=== PATIENT | female | born 1950 | race Caucasian/White ===

== ENCOUNTER 2023-02-19 06:36 | Inpatient (IN) ==
[2023-02-19] MEDS ORDERED: IOPAMIDOL 100 ML BOTTLE IV ONE (06:37)
[2023-02-19] MEDS ORDERED: ROCURONIUM 10 MG/ML ML IV ONE (06:56)
[2023-02-19] MEDS ORDERED: ETOMIDATE 20 MG/10 ML VIAL IV ONE (06:56)
[2023-02-19] MEDS ORDERED: 0.9 % SODIUM CHLORIDE 1,000 ML IV ONE ×2 (06:58→07:25)
[2023-02-19] MEDS ORDERED: PROPOFOL 1,000 MG in PREMIX 1 BAG IV SCH (07:00)
[2023-02-19] MEDS ORDERED: PIPERACILLIN SODIUM/TAZOBACTAM 3.375 GM in DEXTROSE 5% IN WATER 50 ML IV ONE (07:06)
[2023-02-19 07:15] LABS: POC Calcium, Ionized 1.18 (1.16-1.32); POC Creatinine 1.5 (0.6-1.2); POC Potassium 4.3 (3.3-5.1)
[2023-02-19] MEDS ORDERED: CEFEPIME 2 GM VIAL IV ONE (07:29)
[2023-02-19] MEDS ORDERED: VANCOMYCIN PER PHARMACY IV ONE (07:31)
[2023-02-19] MEDS ORDERED: VANCOMYCIN 1,250 MG in 0.9 % SODIUM CHLORIDE 500 ML IV SCH (07:45)
[2023-02-19 08:14] LABS: Basophils # (Auto) 0.04 K/mcL (0.00-0.30); Basophils % (Auto) 0.3 % (0.0-2.0); Eosinophils # (Auto) 0.02 K/mcL (0.00-0.70); Eosinophils % (Auto) 0.2 % (0.0-7.0); Hematocrit 38.6 % (34.1-44.9); Hemoglobin 11.6 g/dL (11.2-15.7); Lymphocytes # (Auto) 1.17 K/mcL (1.50-4.80); Lymphocytes % (Auto) 9.8 % (15.5-49.0); Mean Cell Volume 101.8 fL (80.0-100.0); Mean Corpuscular HGB Conc 30.1 g/dL (31.0-36.0); Mean Platelet Volume 12.3 fL (8.8-12.5); Monocytes # (Auto) 1.24 K/mcL (0.10-0.90); Monocytes % (Auto) 10.3 % (1.0-12.0); Neutrophils % (Auto) 78.1 % (38.0-78.0); Platelet Count 105 K/mcL (140-440); RBC 3.79 M/mcL (3.59-5.38); Red Cell Distribution Width 14.2 % (11.5-14.5)
[2023-02-19 08:21] LABS: Appearance,Urine CLOUDY (Clear); Bacteria,Urine FEW /hpf (0); Bilirubin,Urine Negative (Negative); Color,Urine YELLOW; Culture Indicated,Urine No; Glucose,Urine (UA) Negative (Negative); Ketones,Urine Negative (Negative); Leukocyte Esterase,Urine Negative /uL (Negative); Mucus,Urine FEW /hpf; Nitrate,Urine Negative (Negative); Protein,Urine 30 mg/dL (Negative); Specific Gravity,Urine 1.016 (1.000-1.035); Urine Amorphous Crystals FEW /hpf; Urine Blood Negative (Negative); Urine Hyaline Cast 1 /lph (0-2); Urine RBC 1 /hpf (0-3); Urine Squamous Epithelial Cell 14 /hpf (0-4); Urine WBC 4 /hpf (0-4); Urobilinogen,Urine Negative
[2023-02-19 08:32] LABS: ALT/SGPT 7 U/L (<40); AST/SGOT 30 U/L (<32); Albumin 2.8 gm/dL (3.2-5.2); Alkaline Phosphatase 36 U/L (39-117); Bilirubin,Direct < 0.2 mg/dL (0-0.3); Bilirubin,Total 0.3 mg/dL (0.1-1.0); Creatine Kinase 468 U/L (24-170); Globulin 2.9 gm/dL (2.2-3.7)
[2023-02-19 08:49] LABS: Free T4 (Free Thyroxine) 1.61 ng/dL (0.93-1.70); Thyroid Stimulating Hormone 0.59 uIU/mL (0.27-5.01)
[2023-02-19] MEDS ORDERED: CEFEPIME 2 GM in DEXTROSE 5% IN WATER 50 ML IV SCH (10:23)
[2023-02-19] MEDS ORDERED: HEPARIN/NS 500 ML IV SCH (10:23)
[2023-02-19] MEDS ORDERED: MAGNESIUM SULFATE 2 GM/50 ML BAG IV PRN (10:23)
[2023-02-19] MEDS ORDERED: ONDANSETRON 4 MG/2 ML VIAL IV PRN (10:23)
[2023-02-19] MEDS ORDERED: 0.9 % SODIUM CHLORIDE 1,000 ML IV SCH (10:23)
[2023-02-19] MEDS ORDERED: BISACODYL 10 MG SUPP.RECT PR PRN (10:23)
[2023-02-19] MEDS ORDERED: ONDANSETRON 4 MG ODT TABLET SL PRN (10:23)
[2023-02-19] MEDS: PROPOFOL 1,000 MG in PREMIX 1 BAG IV SCH ×2 (11:07→16:43)
[2023-02-19] MEDS: fentaNYL 2,500 MCG in 0.9 % SODIUM CHLORIDE 200 ML IV SCH (11:49)
[2023-02-19] MEDS: 0.9 % SODIUM CHLORIDE 10 ML SYRINGE IV SCH ×2 (15:17→20:52)
[2023-02-19] MEDS ORDERED: PROPOFOL 100 ML IV ONE (15:40)
[2023-02-19] MEDS: ACETAMINOPHEN 650 MG/65 ML BAG IV PRN (17:20)
[2023-02-19] MEDS: CEFEPIME 2 GM VIAL IV SCH (20:51)
[2023-02-19] MEDS: FAMOTIDINE/PF 20 MG/2 ML VIAL IV SCH (20:51)
[2023-02-19] MEDS: HEPARIN 5,000 UNIT/ML VIAL SQ SCH (20:51)
[2023-02-19] MEDS: CHLORHEXIDINE GLUCONATE 15 ML UDC SWABMOUTH SCH (20:51)
[2023-02-19] MEDS: DOCUSATE SODIUM 100 MG CAPSULE PO SCH (20:52)
[2023-02-19] MEDS ORDERED: LACTATED RINGERS 1,000 ML IV SCH (21:30)
[2023-02-19] MEDS: LACTATED RINGERS 250 ML IV PRN (21:33)
[2023-02-19] MEDS: 0.9 % SODIUM CHLORIDE 1,000 ML IV SCH (21:46)
[2023-02-19] MEDS ORDERED: NOREPINEPHRINE BITARTRATE 4 MG/4 ML VIAL IV ONE (23:07)
[2023-02-19] MEDS: 0.9 % SODIUM CHLORIDE 250 ML IV SCH (23:10)
[2023-02-19] MEDS: NOREPINEPHRINE BITARTRATE 8 MG in 0.9 % SODIUM CHLORIDE 242 ML IV PRN (23:14)
[2023-02-20] MEDS: ACETAMINOPHEN 650 MG/65 ML BAG IV PRN ×2 (01:32→15:49)
[2023-02-20] MEDS ORDERED: PROPOFOL 100 ML IV ONE ×3 (03:23→21:53)
[2023-02-20] MEDS: PROPOFOL 1,000 MG in PREMIX 1 BAG IV SCH ×4 (03:45→21:57)
[2023-02-20] MEDS: 0.9 % SODIUM CHLORIDE 10 ML SYRINGE IV SCH ×3 (05:06→20:16)
[2023-02-20 06:44] LABS: Basophils # (Auto) 0.05 K/mcL (0.00-0.30); Basophils % (Auto) 0.5 % (0.0-2.0); Eosinophils # (Auto) 0.01 K/mcL (0.00-0.70); Eosinophils % (Auto) 0.1 % (0.0-7.0); Hematocrit 35.2 % (34.1-44.9); Hemoglobin 10.8 g/dL (11.2-15.7); Lymphocytes # (Auto) 0.92 K/mcL (1.50-4.80); Lymphocytes % (Auto) 9.5 % (15.5-49.0); Mean Cell Volume 99.7 fL (80.0-100.0); Mean Corpuscular HGB Conc 30.7 g/dL (31.0-36.0); Mean Platelet Volume 11.9 fL (8.8-12.5); Monocytes % (Auto) 14.4 % (1.0-12.0); Neutrophils % (Auto) 73.9 % (38.0-78.0); Platelet Count 134 K/mcL (140-440); RBC 3.53 M/mcL (3.59-5.38); Red Cell Distribution Width 14.6 % (11.5-14.5); WBC 9.7 K/mcL (4.5-11.0)
[2023-02-20 07:16] LABS: ALT/SGPT 6 U/L (<40); AST/SGOT 25 U/L (<32); Albumin 2.1 gm/dL (3.2-5.2); Albumin/Globulin Ratio 0.7 (1.0-2.3); Alkaline Phosphatase 32 U/L (39-117); Bilirubin,Direct < 0.2 mg/dL (0-0.3); Bilirubin,Total 0.2 mg/dL (0.1-1.0); Blood Urea Nitrogen 30 mg/dL (8-23); Calcium 8.3 mg/dL (8.6-10.4); Carbon Dioxide 22 mmol/L (22-30); Chloride 112 mmol/L (96-108); Globulin 3.2 gm/dL (2.2-3.7); Glomerular Filtration Rate 51; Glucose 90 mg/dL (70-105); Lactate Dehydrogenase 344 U/L (135-225); Phosphorous 4.6 mg/dL (2.5-4.5); Triglycerides 131 mg/dL (<150); Uric Acid 5.8 mg/dL (2.5-8.0)
[2023-02-20] MEDS: BACLOFEN 10 MG TABLET PO SCH ×3 (08:30→20:13)
[2023-02-20] MEDS: LEVOTHYROXINE SODIUM 112 MCG TABLET PO SCH (08:30)
[2023-02-20] MEDS: 0.9 % SODIUM CHLORIDE 1,000 ML IV SCH ×2 (08:55→21:51)
[2023-02-20] MEDS ORDERED: VALPROIC ACIDS 250 MG/5 ML ORAL.SOL PO SCH (09:00)
[2023-02-20] MEDS: CEFEPIME 2 GM VIAL IV SCH ×2 (09:11→20:11)
[2023-02-20] MEDS: HEPARIN 5,000 UNIT/ML VIAL SQ SCH ×2 (09:12→20:11)
[2023-02-20] MEDS: FAMOTIDINE/PF 20 MG/2 ML VIAL IV SCH ×2 (09:12→20:17)
[2023-02-20] MEDS: CHLORHEXIDINE GLUCONATE 15 ML UDC SWABMOUTH SCH ×2 (09:13→20:16)
[2023-02-20] MEDS: 0.9 % SODIUM CHLORIDE 250 ML IV SCH ×2 (11:54→11:58)
[2023-02-20] MEDS: VALPROIC ACIDS 250 MG/5 ML ORAL.SOL PT SCH ×2 (12:53→20:16)
[2023-02-20] MEDS: DOCUSATE SODIUM 100 MG CAPSULE PO SCH ×2 (13:01→20:17)
[2023-02-20] MEDS: fentaNYL 2,500 MCG in 0.9 % SODIUM CHLORIDE 200 ML IV SCH ×2 (14:47→16:04)
[2023-02-20] MEDS ORDERED: fentaNYL 50 ML ONE (16:01)
[2023-02-20] MEDS ORDERED: ALBUMIN HUMAN 12.5 GM/50 ML VIAL IV SCH (16:52)
[2023-02-20] MEDS: SIMVASTATIN 20 MG TABLET PT SCH (20:12)
[2023-02-20] MEDS: VENLAFAXINE 75 MG TABLET PO SCH (20:17)
[2023-02-20] MEDS ORDERED: PREGABALIN 200 MG PO SCH (21:00)
[2023-02-20] MEDS: POLYETHYLENE GLYCOL 3350 17 GM PACKET PO PRN (23:54)
[2023-02-21] MEDS: 0.9 % SODIUM CHLORIDE 250 ML IV SCH ×2 (00:11→01:15)
[2023-02-21] MEDS: 0.9 % SODIUM CHLORIDE 1,000 ML IV SCH (01:15)
[2023-02-21] MEDS: NOREPINEPHRINE BITARTRATE 8 MG in 0.9 % SODIUM CHLORIDE 242 ML IV PRN (03:11)
[2023-02-21] MEDS: 0.9 % SODIUM CHLORIDE 10 ML SYRINGE IV SCH ×5 (05:27→21:46)
[2023-02-21] MEDS ORDERED: PROPOFOL 100 ML IV ONE (06:16)
[2023-02-21] MEDS: PROPOFOL 1,000 MG in PREMIX 1 BAG IV SCH ×2 (06:19→10:24)
[2023-02-21 06:56] LABS: Basophils # (Auto) 0.09 K/mcL (0.00-0.30); Basophils % (Auto) 0.9 % (0.0-2.0); Eosinophils # (Auto) 0.07 K/mcL (0.00-0.70); Eosinophils % (Auto) 0.7 % (0.0-7.0); Hemoglobin 9.7 g/dL (11.2-15.7); Lymphocytes # (Auto) 1.06 K/mcL (1.50-4.80); Mean Cell Volume 97.8 fL (80.0-100.0); Mean Corpuscular HGB Conc 31.3 g/dL (31.0-36.0); Mean Platelet Volume 11.9 fL (8.8-12.5); Monocytes # (Auto) 1.46 K/mcL (0.10-0.90); Monocytes % (Auto) 14.9 % (1.0-12.0); Neutrophils % (Auto) 70.8 % (38.0-78.0); Platelet Count 118 K/mcL (140-440); RBC 3.17 M/mcL (3.59-5.38); Red Cell Distribution Width 14.6 % (11.5-14.5); WBC 9.8 K/mcL (4.5-11.0)
[2023-02-21 07:03] LABS: ALT/SGPT 10 U/L (<40); AST/SGOT 21 U/L (<32); Albumin 2.4 gm/dL (3.2-5.2); Albumin/Globulin Ratio 0.9 (1.0-2.3); Alkaline Phosphatase 36 U/L (39-117); Bilirubin,Direct < 0.2 mg/dL (0-0.3); Bilirubin,Total 0.2 mg/dL (0.1-1.0); Blood Urea Nitrogen 29 mg/dL (8-23); Calcium 8.4 mg/dL (8.6-10.4); Carbon Dioxide 24 mmol/L (22-30); Chloride 117 mmol/L (96-108); Globulin 2.7 gm/dL (2.2-3.7); Glomerular Filtration Rate 51; Glucose 133 mg/dL (70-105); Lactate Dehydrogenase 207 U/L (135-225); Phosphorous 3.3 mg/dL (2.5-4.5); Triglycerides 112 mg/dL (<150); Uric Acid 4.9 mg/dL (2.5-8.0)
[2023-02-21] MEDS ORDERED: 0.9 % SODIUM CHLORIDE 10 ML SYRINGE IV PRN (07:07)
[2023-02-21] MEDS: LEVOTHYROXINE SODIUM 112 MCG TABLET PO SCH (07:56)
[2023-02-21] MEDS: FAMOTIDINE/PF 20 MG/2 ML VIAL IV SCH ×2 (07:56→21:45)
[2023-02-21] MEDS: HEPARIN 5,000 UNIT/ML VIAL SQ SCH ×2 (07:56→21:42)
[2023-02-21] MEDS: VENLAFAXINE 75 MG TABLET PO SCH ×2 (07:56→21:36)
[2023-02-21] MEDS: BACLOFEN 10 MG TABLET PO SCH ×3 (07:56→21:36)
[2023-02-21] MEDS: VALPROIC ACIDS 250 MG/5 ML ORAL.SOL PT SCH ×2 (07:56→21:36)
[2023-02-21] MEDS: CHLORHEXIDINE GLUCONATE 15 ML UDC SWABMOUTH SCH ×3 (07:56→23:36)
[2023-02-21] MEDS: DOCUSATE SODIUM 100 MG CAPSULE PO SCH ×2 (07:57→21:35)
[2023-02-21] MEDS ORDERED: DEXTROSE 5% IN WATER 1,000 ML IV SCH ×2 (08:00→14:41)
[2023-02-21] MEDS: CEFEPIME 1 GM VIAL IV SCH ×2 (08:52→21:40)
[2023-02-21] MEDS ORDERED: LORazepam 2 MG/ML VIAL IV ONE (09:45)
[2023-02-21 10:19] LABS: Lymphocytes % (Auto) 10.8 % (15.5-49.0)
[2023-02-21] MEDS: fentaNYL 2,500 MCG in 0.9 % SODIUM CHLORIDE 200 ML IV SCH (10:24)
[2023-02-21] MEDS: IPRATROPIUM/ALBUTEROL 3 ML AMPUL.NEB NEB PRN ×3 (11:29→20:45)
[2023-02-21] MEDS ORDERED: IPRATROPIUM/ALBUTEROL 3 ML AMPUL.NEB NEB ONE (11:29)
[2023-02-21] MEDS ORDERED: ALBUMIN HUMAN 12.5 GM/50 ML VIAL IV SCH (11:49)
[2023-02-21] MEDS ORDERED: FUROSEMIDE 40 MG/4 ML VIAL IV SCH (11:49)
[2023-02-21] MEDS ORDERED: OLANZapine 5 MG TABLET PO PRN (11:50)
[2023-02-21] MEDS ORDERED: HALOPERIDOL LACTATE 5 MG/ML VIAL IM SCH (12:39)
[2023-02-21] MEDS ORDERED: LORazepam 2 MG/ML VIAL IV PRN (12:40)
[2023-02-21] MEDS ORDERED: HALOPERIDOL LACTATE 5 MG/ML VIAL ONE ×2 (12:40→19:00)
[2023-02-21] MEDS ORDERED: HALOPERIDOL LACTATE 5 MG/ML VIAL IV SCH (12:50)
[2023-02-21] MEDS: BUDESONIDE 0.5 MG/2 ML AMPUL.NEB NEB SCH ×2 (13:29→20:45)
[2023-02-21] MEDS: LACTATED RINGERS 250 ML IV PRN (15:04)
[2023-02-21 18:10] LABS: Blood Urea Nitrogen 27 mg/dL (8-23); Calcium 9.1 mg/dL (8.6-10.4); Carbon Dioxide 26 mmol/L (22-30); Chloride 112 mmol/L (96-108); Glomerular Filtration Rate 57; Glucose 133 mg/dL (70-105)
[2023-02-21] MEDS: HALOPERIDOL LACTATE 5 MG/ML VIAL IV ONE ×2 (19:05→19:36)
[2023-02-21] MEDS ORDERED: DEXMEDETOMIDINE 100 ML IV ONE (19:55)
[2023-02-21] MEDS: DEXMEDETOMIDINE 400 MCG in PREMIX 1 BAG IV SCH (20:15)
[2023-02-21] MEDS ORDERED: 0.9 % SODIUM CHLORIDE 250 ML IV SCH (20:15)
[2023-02-21] MEDS: WATER IV SCH (20:23)
[2023-02-21] MEDS: DEXTROSE 5% IV SCH (20:23)
[2023-02-21] MEDS: SIMVASTATIN 20 MG TABLET PT SCH (21:41)
[2023-02-22] MEDS: ACETAMINOPHEN 650 MG/65 ML BAG IV PRN ×3 (02:34→18:45)
[2023-02-22] MEDS: IPRATROPIUM/ALBUTEROL 3 ML AMPUL.NEB NEB PRN ×5 (03:40→19:05)
[2023-02-22] MEDS ORDERED: DEXMEDETOMIDINE 100 ML IV ONE (04:09)
[2023-02-22] MEDS: DEXMEDETOMIDINE 400 MCG in PREMIX 1 BAG IV SCH ×2 (04:16→19:18)
[2023-02-22] MEDS: 0.9 % SODIUM CHLORIDE 10 ML SYRINGE IV SCH ×5 (05:30→20:16)
[2023-02-22 06:00] LABS: Basophils # (Auto) 0.06 K/mcL (0.00-0.30); Basophils % (Auto) 0.7 % (0.0-2.0); Eosinophils # (Auto) 0.01 K/mcL (0.00-0.70); Eosinophils % (Auto) 0.1 % (0.0-7.0); Hematocrit 27.8 % (34.1-44.9); Hemoglobin 8.7 g/dL (11.2-15.7); Lymphocytes # (Auto) 0.44 K/mcL (1.50-4.80); Mean Cell Volume 97.2 fL (80.0-100.0); Mean Corpuscular HGB Conc 31.3 g/dL (31.0-36.0); Mean Platelet Volume 11.1 fL (8.8-12.5); Monocytes # (Auto) 1.01 K/mcL (0.10-0.90); Monocytes % (Auto) 11.5 % (1.0-12.0); Neutrophils % (Auto) 76.5 % (38.0-78.0); Platelet Count 97 K/mcL (140-440); RBC 2.86 M/mcL (3.59-5.38); Red Cell Distribution Width 14.6 % (11.5-14.5); WBC 8.8 K/mcL (4.5-11.0)
[2023-02-22 06:13] LABS: ALT/SGPT 12 U/L (<40); AST/SGOT 25 U/L (<32); Albumin 2.7 gm/dL (3.2-5.2); Alkaline Phosphatase 39 U/L (39-117); Bilirubin,Direct < 0.2 mg/dL (0-0.3); Bilirubin,Total 0.3 mg/dL (0.1-1.0); Blood Urea Nitrogen 27 mg/dL (8-23); Calcium 8.7 mg/dL (8.6-10.4); Carbon Dioxide 25 mmol/L (22-30); Chloride 112 mmol/L (96-108); Globulin 2.6 gm/dL (2.2-3.7); Glomerular Filtration Rate 57; Glucose 156 mg/dL (70-105); Lactate Dehydrogenase 268 U/L (135-225); Phosphorous 2.9 mg/dL (2.5-4.5); Triglycerides 110 mg/dL (<150); Uric Acid 5.3 mg/dL (2.5-8.0)
[2023-02-22] MEDS: LEVOTHYROXINE SODIUM 112 MCG TABLET PO SCH (07:07)
[2023-02-22] MEDS: BUDESONIDE 0.5 MG/2 ML AMPUL.NEB NEB SCH ×2 (08:30→19:05)
[2023-02-22] MEDS: CHLORHEXIDINE GLUCONATE 15 ML UDC SWABMOUTH SCH ×2 (09:14→20:12)
[2023-02-22] MEDS: FAMOTIDINE/PF 20 MG/2 ML VIAL IV SCH ×2 (09:14→20:12)
[2023-02-22] MEDS: fentaNYL 100 MCG/2 ML VIAL IV PRN ×10 (09:15→22:24)
[2023-02-22] MEDS: HEPARIN 5,000 UNIT/ML VIAL SQ SCH ×2 (09:17→21:17)
[2023-02-22] MEDS: CEFEPIME 1 GM VIAL IV SCH ×2 (09:20→20:12)
[2023-02-22] MEDS: POTASSIUM CHLORIDE 40 MEQ in DEXTROSE 5% IN WATER 500 ML IV PRN (09:36)
[2023-02-22] MEDS: DOCUSATE SODIUM 100 MG CAPSULE PO SCH ×2 (09:55→20:14)
[2023-02-22] MEDS: VALPROIC ACIDS 250 MG/5 ML ORAL.SOL PT SCH ×2 (09:55→20:15)
[2023-02-22] MEDS: BACLOFEN 10 MG TABLET PO SCH ×3 (09:55→20:15)
[2023-02-22] MEDS: VENLAFAXINE 75 MG TABLET PO SCH ×2 (09:55→20:15)
[2023-02-22] MEDS ORDERED: FUROSEMIDE 20 MG/2 ML VIAL IV SCH (10:25)
[2023-02-22] MEDS ORDERED: ALBUMIN HUMAN 12.5 GM/50 ML VIAL IV SCH (10:25)
[2023-02-22] MEDS: ASPIRIN 81 MG TAB.CHEW PO SCH (20:14)
[2023-02-22] MEDS: DEXTROSE 5% IV SCH (20:14)
[2023-02-22] MEDS: WATER IV SCH (20:14)
[2023-02-22] MEDS: SIMVASTATIN 20 MG TABLET PT SCH (20:15)
[2023-02-22] MEDS: PROPRANOLOL 10 MG TABLET PO SCH (20:15)
[2023-02-22] MEDS ORDERED: METHOCARBAMOL 1,000 MG/10 ML VIAL ONE (22:33)
[2023-02-22] MEDS: METHOCARBAMOL 1,000 MG/10 ML VIAL IV PRN (22:37)
[2023-02-23] MEDS: fentaNYL 100 MCG/2 ML VIAL IV PRN ×2 (00:24→02:22)
[2023-02-23] MEDS: ACETAMINOPHEN 650 MG/65 ML BAG IV PRN ×2 (02:26→10:40)
[2023-02-23] MEDS ORDERED: METHOCARBAMOL 1,000 MG/10 ML VIAL ONE (03:55)
[2023-02-23] MEDS: METHOCARBAMOL 1,000 MG/10 ML VIAL IV PRN (03:58)
[2023-02-23] MEDS: 0.9 % SODIUM CHLORIDE 10 ML SYRINGE IV SCH ×5 (05:21→21:08)
[2023-02-23] MEDS ORDERED: LORazepam 2 MG/ML VIAL ONE (06:35)
[2023-02-23 06:37] LABS: ALT/SGPT 16 U/L (<40); AST/SGOT 29 U/L (<32); Albumin 2.8 gm/dL (3.2-5.2); Alkaline Phosphatase 40 U/L (39-117); Bilirubin,Direct < 0.2 mg/dL (0-0.3); Bilirubin,Total 0.3 mg/dL (0.1-1.0); Blood Urea Nitrogen 26 mg/dL (8-23); Calcium 9.2 mg/dL (8.6-10.4); Carbon Dioxide 27 mmol/L (22-30); Chloride 110 mmol/L (96-108); Globulin 2.9 gm/dL (2.2-3.7); Glomerular Filtration Rate 64; Glucose 99 mg/dL (70-105); Lactate Dehydrogenase 319 U/L (135-225); Phosphorous 1.8 mg/dL (2.5-4.5); Triglycerides 105 mg/dL (<150); Uric Acid 5.8 mg/dL (2.5-8.0)
[2023-02-23] MEDS: LEVOTHYROXINE SODIUM 112 MCG TABLET PO SCH (06:39)
[2023-02-23] MEDS: LORazepam 2 MG/ML VIAL IV ONE ×2 (06:39→07:36)
[2023-02-23] MEDS: LIDOCAINE PATCH TOPICAL SCH ×2 (06:53→08:07)
[2023-02-23] MEDS: BACLOFEN 10 MG TABLET PO SCH (07:00)
[2023-02-23] MEDS: VENLAFAXINE 75 MG TABLET PO SCH ×3 (07:00→22:09)
[2023-02-23 07:32] LABS: Basophils # (Auto) 0.02 K/mcL (0.00-0.30); Basophils % (Auto) 0.2 % (0.0-2.0); Eosinophils # (Auto) 0.02 K/mcL (0.00-0.70); Eosinophils % (Auto) 0.2 % (0.0-7.0); Hematocrit 29.6 % (34.1-44.9); Hemoglobin 9.2 g/dL (11.2-15.7); Lymphocytes # (Auto) 0.81 K/mcL (1.50-4.80); Lymphocytes % (Auto) 7.4 % (15.5-49.0); Mean Cell Volume 96.7 fL (80.0-100.0); Mean Corpuscular HGB Conc 31.1 g/dL (31.0-36.0); Mean Platelet Volume 11.2 fL (8.8-12.5); Monocytes # (Auto) 1.53 K/mcL (0.10-0.90); Monocytes % (Auto) 14.1 % (1.0-12.0); Neutrophils % (Auto) 71.9 % (38.0-78.0); Platelet Count 110 K/mcL (140-440); RBC 3.06 M/mcL (3.59-5.38); Red Cell Distribution Width 14.6 % (11.5-14.5); WBC 10.9 K/mcL (4.5-11.0)
[2023-02-23] MEDS: BUDESONIDE 0.5 MG/2 ML AMPUL.NEB NEB SCH ×2 (07:41→20:34)
[2023-02-23] MEDS: IPRATROPIUM/ALBUTEROL 3 ML AMPUL.NEB NEB PRN ×3 (07:41→20:35)
[2023-02-23] MEDS: traMADol 50 MG TABLET PO PRN (08:05)
[2023-02-23] MEDS: PROPRANOLOL 10 MG TABLET PO SCH ×3 (08:07→22:10)
[2023-02-23] MEDS: ASPIRIN 81 MG TAB.CHEW PO SCH ×2 (08:07→21:06)
[2023-02-23] MEDS: VALPROIC ACIDS 250 MG/5 ML ORAL.SOL PT SCH ×2 (08:07→20:56)
[2023-02-23] MEDS: CEFEPIME 1 GM VIAL IV SCH ×2 (08:07→20:58)
[2023-02-23] MEDS: DOCUSATE SODIUM 100 MG CAPSULE PO SCH ×2 (08:07→21:06)
[2023-02-23] MEDS: FAMOTIDINE/PF 20 MG/2 ML VIAL IV SCH ×2 (08:08→20:57)
[2023-02-23] MEDS: HEPARIN 5,000 UNIT/ML VIAL SQ SCH ×2 (08:08→20:57)
[2023-02-23] MEDS: POTASSIUM CHLORIDE 40 MEQ in DEXTROSE 5% IN WATER 500 ML IV PRN (08:09)
[2023-02-23] MEDS: CHLORHEXIDINE GLUCONATE 15 ML UDC SWABMOUTH SCH ×2 (08:09→20:57)
[2023-02-23] MEDS: DONEPEZIL 10 MG TABLET PO SCH (08:27)
[2023-02-23] MEDS ORDERED: NEUTRA PHOS 1 PACKET PO ONE (09:52)
[2023-02-23] MEDS ORDERED: BACLOFEN 10 MG TABLET PO PRN (09:52)
[2023-02-23] MEDS ORDERED: guaiFENesin 600 MG TAB.SR.12H PO SCH (10:00)
[2023-02-23] MEDS ORDERED: guaiFENesin 600 MG TAB.SR.12H PO PRN (10:30)
[2023-02-23 14:18] LABS: ALT/SGPT 24 U/L (<40); AST/SGOT 46 U/L (<32); Albumin 3.2 gm/dL (3.2-5.2); Albumin/Globulin Ratio 1.1 (1.0-2.3); Alkaline Phosphatase 64 U/L (39-117); Bilirubin,Direct < 0.2 mg/dL (0-0.3); Bilirubin,Total 0.3 mg/dL (0.1-1.0); Blood Urea Nitrogen 31 mg/dL (8-23); Calcium 9.5 mg/dL (8.6-10.4); Carbon Dioxide 26 mmol/L (22-30); Chloride 110 mmol/L (96-108); Globulin 2.8 gm/dL (2.2-3.7); Glomerular Filtration Rate 64; Glucose 147 mg/dL (70-105); Lactate Dehydrogenase 363 U/L (135-225); Triglycerides 80 mg/dL (<150)
[2023-02-23] MEDS ORDERED: LABETALOL 5 MG/ML ML IV PRN (15:23)
[2023-02-23] MEDS: hydrALAZINE 20 MG/ML VIAL IV PRN (15:36)
[2023-02-23] MEDS: BACLOFEN 10 MG TABLET PO PRN (16:02)
[2023-02-23] MEDS: oxyCODONE IR 5 MG TABLET PO PRN (16:02)
[2023-02-23] MEDS: ACETAMINOPHEN 325 MG TABLET PO PRN (16:03)
[2023-02-23] MEDS: DEXMEDETOMIDINE 400 MCG in PREMIX 1 BAG IV SCH (20:29)
[2023-02-23] MEDS: guaiFENesin 600 MG TAB.SR.12H PO SCH (21:07)
[2023-02-23] MEDS: SIMVASTATIN 20 MG TABLET PT SCH ×2 (21:09→22:10)
[2023-02-24] MEDS: 0.9 % SODIUM CHLORIDE 10 ML SYRINGE IV SCH ×5 (05:18→21:05)
[2023-02-24] MEDS: IPRATROPIUM/ALBUTEROL 3 ML AMPUL.NEB NEB PRN ×3 (07:28→20:42)
[2023-02-24] MEDS: BUDESONIDE 0.5 MG/2 ML AMPUL.NEB NEB SCH ×2 (07:28→20:42)
[2023-02-24] MEDS: LEVOTHYROXINE SODIUM 112 MCG TABLET PO SCH (07:48)
[2023-02-24 07:53] LABS: Basophils # (Auto) 0.02 K/mcL (0.00-0.30); Basophils % (Auto) 0.2 % (0.0-2.0); Eosinophils # (Auto) 0.03 K/mcL (0.00-0.70); Eosinophils % (Auto) 0.3 % (0.0-7.0); Hematocrit 31.4 % (34.1-44.9); Hemoglobin 9.7 g/dL (11.2-15.7); Lymphocytes # (Auto) 1.48 K/mcL (1.50-4.80); Lymphocytes % (Auto) 12.5 % (15.5-49.0); Mean Cell Volume 97.8 fL (80.0-100.0); Mean Corpuscular HGB Conc 30.9 g/dL (31.0-36.0); Monocytes # (Auto) 1.68 K/mcL (0.10-0.90); Monocytes % (Auto) 14.2 % (1.0-12.0); Neutrophils % (Auto) 62.7 % (38.0-78.0); Platelet Count 156 K/mcL (140-440); RBC 3.21 M/mcL (3.59-5.38); WBC 11.8 K/mcL (4.5-11.0)
[2023-02-24 07:55] LABS: ALT/SGPT 23 U/L (<40); AST/SGOT 29 U/L (<32); Albumin 2.9 gm/dL (3.2-5.2); Alkaline Phosphatase 57 U/L (39-117); Bilirubin,Direct < 0.2 mg/dL (0-0.3); Bilirubin,Total 0.4 mg/dL (0.1-1.0); Blood Urea Nitrogen 36 mg/dL (8-23); Carbon Dioxide 27 mmol/L (22-30); Chloride 113 mmol/L (96-108); Globulin 2.8 gm/dL (2.2-3.7); Glomerular Filtration Rate 64; Glucose 105 mg/dL (70-105); Lactate Dehydrogenase 346 U/L (135-225); Phosphorous 2.2 mg/dL (2.5-4.5); Triglycerides 86 mg/dL (<150); Uric Acid 5.8 mg/dL (2.5-8.0)
[2023-02-24] MEDS: PROPRANOLOL 10 MG TABLET PO SCH ×2 (08:29→20:44)
[2023-02-24] MEDS: VENLAFAXINE 75 MG TABLET PO SCH ×2 (08:29→20:44)
[2023-02-24] MEDS: ASPIRIN 81 MG TAB.CHEW PO SCH ×2 (08:29→20:44)
[2023-02-24] MEDS: guaiFENesin 600 MG TAB.SR.12H PO SCH ×2 (08:30→20:44)
[2023-02-24] MEDS: VALPROIC ACIDS 250 MG/5 ML ORAL.SOL PT SCH ×2 (08:30→20:41)
[2023-02-24] MEDS: CHLORHEXIDINE GLUCONATE 15 ML UDC SWABMOUTH SCH ×3 (08:30→21:05)
[2023-02-24] MEDS ORDERED: DEXTROSE 5%-LR 1,000 ML IV SCH (08:30)
[2023-02-24] MEDS: DOCUSATE SODIUM 100 MG CAPSULE PO SCH ×2 (08:31→20:47)
[2023-02-24] MEDS: DONEPEZIL 10 MG TABLET PO SCH (08:43)
[2023-02-24] MEDS: HEPARIN 5,000 UNIT/ML VIAL SQ SCH ×2 (08:48→20:42)
[2023-02-24] MEDS: CEFEPIME 1 GM VIAL IV SCH ×2 (08:48→20:42)
[2023-02-24] MEDS: FAMOTIDINE/PF 20 MG/2 ML VIAL IV SCH ×2 (08:48→20:43)
[2023-02-24] MEDS: hydrALAZINE 20 MG/ML VIAL IV PRN (10:11)
[2023-02-24] MEDS: SODIUM CHLORIDE FOR INHALATION INH SCH ×2 (11:48→20:43)
[2023-02-24] MEDS: ACETYLCYSTEINE 800 MG/4 ML VIAL NEB SCH ×2 (11:49→20:42)
[2023-02-24] MEDS: LIDOCAINE PATCH TOPICAL SCH (13:23)
[2023-02-24] MEDS: DEXTROSE 5% IN WATER 1,000 ML IV SCH (17:07)
[2023-02-24] MEDS: SIMVASTATIN 20 MG TABLET PT SCH (20:44)
[2023-02-24] MEDS: DEXMEDETOMIDINE 400 MCG in PREMIX 1 BAG IV SCH (20:47)
[2023-02-25] MEDS: 0.9 % SODIUM CHLORIDE 10 ML SYRINGE IV SCH ×4 (05:49→21:27)
[2023-02-25] MEDS: DEXTROSE 5% IN WATER 1,000 ML IV SCH ×2 (05:50→18:49)
[2023-02-25 07:17] LABS: ALT/SGPT 20 U/L (<40); AST/SGOT 18 U/L (<32); Albumin 2.5 gm/dL (3.2-5.2); Albumin/Globulin Ratio 0.8 (1.0-2.3); Alkaline Phosphatase 55 U/L (39-117); Bilirubin,Direct < 0.2 mg/dL (0-0.3); Bilirubin,Total 0.3 mg/dL (0.1-1.0); Blood Urea Nitrogen 38 mg/dL (8-23); Calcium 9.8 mg/dL (8.6-10.4); Carbon Dioxide 28 mmol/L (22-30); Chloride 113 mmol/L (96-108); Glomerular Filtration Rate 74; Glucose 129 mg/dL (70-105); Lactate Dehydrogenase 340 U/L (135-225); Phosphorous 1.7 mg/dL (2.5-4.5); Triglycerides 114 mg/dL (<150); Uric Acid 5.6 mg/dL (2.5-8.0)
[2023-02-25] MEDS ORDERED: POTASSIUM PHOSPHATE 40 MEQ in DEXTROSE 5% IN WATER 500 ML IV ONE (07:56)
[2023-02-25] MEDS: POLYETHYLENE GLYCOL 3350 17 GM PACKET PO PRN (08:14)
[2023-02-25] MEDS: DOCUSATE SODIUM 100 MG CAPSULE PO SCH ×2 (08:14→21:26)
[2023-02-25] MEDS: guaiFENesin 600 MG TAB.SR.12H PO SCH ×2 (08:15→21:26)
[2023-02-25] MEDS: VENLAFAXINE 75 MG TABLET PO SCH ×2 (08:15→21:26)
[2023-02-25] MEDS: PROPRANOLOL 10 MG TABLET PO SCH ×2 (08:15→21:26)
[2023-02-25] MEDS: CEFEPIME 1 GM VIAL IV SCH ×2 (08:16→21:25)
[2023-02-25] MEDS: LEVOTHYROXINE SODIUM 112 MCG TABLET PO SCH (08:16)
[2023-02-25] MEDS: ASPIRIN 81 MG TAB.CHEW PO SCH ×2 (08:16→21:26)
[2023-02-25] MEDS: traMADol 50 MG TABLET PO PRN (08:16)
[2023-02-25] MEDS: CHLORHEXIDINE GLUCONATE 15 ML UDC SWABMOUTH SCH ×3 (08:16→21:25)
[2023-02-25] MEDS: DONEPEZIL 10 MG TABLET PO SCH (08:16)
[2023-02-25] MEDS: HEPARIN 5,000 UNIT/ML VIAL SQ SCH (08:17)
[2023-02-25] MEDS: FAMOTIDINE/PF 20 MG/2 ML VIAL IV SCH ×2 (08:21→21:25)
[2023-02-25] MEDS: VALPROIC ACIDS 250 MG/5 ML ORAL.SOL PT SCH ×2 (08:21→21:24)
[2023-02-25 08:48] LABS: Basophils # (Auto) 0.02 K/mcL (0.00-0.30); Basophils % (Auto) 0.1 % (0.0-2.0); Eosinophils # (Auto) 0.12 K/mcL (0.00-0.70); Eosinophils % (Auto) 0.9 % (0.0-7.0); Hematocrit 30.7 % (34.1-44.9); Hemoglobin 9.6 g/dL (11.2-15.7); Mean Cell Volume 96.8 fL (80.0-100.0); Mean Corpuscular HGB Conc 31.3 g/dL (31.0-36.0); Monocytes # (Auto) 2.01 K/mcL (0.10-0.90); Monocytes % (Auto) 14.6 % (1.0-12.0); Platelet Count 172 K/mcL (140-440); Red Cell Distribution Width 14.9 % (11.5-14.5)
[2023-02-25 09:03] LABS: RBC 3.17 M/mcL (3.59-5.38); WBC 13.8 K/mcL (4.5-11.0)
[2023-02-25] MEDS: BUDESONIDE 0.5 MG/2 ML AMPUL.NEB NEB SCH ×2 (09:25→19:11)
[2023-02-25] MEDS: ACETYLCYSTEINE 800 MG/4 ML VIAL NEB SCH ×2 (09:25→19:11)
[2023-02-25] MEDS: IPRATROPIUM/ALBUTEROL 3 ML AMPUL.NEB NEB PRN ×3 (09:25→19:11)
[2023-02-25] MEDS: SODIUM CHLORIDE FOR INHALATION INH SCH ×3 (09:26→19:11)
[2023-02-25] MEDS: LIDOCAINE PATCH TOPICAL SCH (12:46)
[2023-02-25] MEDS: POTASSIUM CHLORIDE 20 MEQ/15 ML ML PT SCH (16:53)
[2023-02-25] MEDS: SIMVASTATIN 20 MG TABLET PT SCH (21:26)
[2023-02-26] MEDS: hydrALAZINE 20 MG/ML VIAL IV PRN (04:25)
[2023-02-26] MEDS: 0.9 % SODIUM CHLORIDE 10 ML SYRINGE IV SCH ×3 (04:26→21:32)
[2023-02-26 07:13] LABS: Phosphorous 2.4 mg/dL (2.5-4.5)
[2023-02-26 07:35] LABS: Basophils # (Auto) 0.04 K/mcL (0.00-0.30); Basophils % (Auto) 0.2 % (0.0-2.0); Eosinophils # (Auto) 0.51 K/mcL (0.00-0.70); Eosinophils % (Auto) 2.2 % (0.0-7.0); Hematocrit 38.6 % (34.1-44.9); Hemoglobin 12.1 g/dL (11.2-15.7); Lymphocytes # (Auto) 2.79 K/mcL (1.50-4.80); Lymphocytes % (Auto) 12.1 % (15.5-49.0); Mean Corpuscular HGB Conc 31.3 g/dL (31.0-36.0); Mean Platelet Volume 10.8 fL (8.8-12.5); Monocytes # (Auto) 2.96 K/mcL (0.10-0.90); Monocytes % (Auto) 12.9 % (1.0-12.0); Neutrophils % (Auto) 61.7 % (38.0-78.0); Platelet Count 237 K/mcL (140-440); Red Cell Distribution Width 14.6 % (11.5-14.5)
[2023-02-26 07:43] LABS: ALT/SGPT 28 U/L (<40); AST/SGOT 37 U/L (<32); Albumin/Globulin Ratio 0.9 (1.0-2.3); Alkaline Phosphatase 71 U/L (39-117); Bilirubin,Total 0.4 mg/dL (0.1-1.0); Blood Urea Nitrogen 28 mg/dL (8-23); Calcium 9.9 mg/dL (8.6-10.4); Carbon Dioxide 27 mmol/L (22-30); Chloride 105 mmol/L (96-108); Globulin 3.2 gm/dL (2.2-3.7); Glomerular Filtration Rate 87; Glucose 114 mg/dL (70-105)
[2023-02-26 08:18] LABS: RBC 4.02 M/mcL (3.59-5.38)
[2023-02-26] MEDS: IPRATROPIUM/ALBUTEROL 3 ML AMPUL.NEB NEB PRN ×3 (08:53→20:16)
[2023-02-26] MEDS: BUDESONIDE 0.5 MG/2 ML AMPUL.NEB NEB SCH ×2 (08:53→20:16)
[2023-02-26] MEDS: SODIUM CHLORIDE FOR INHALATION INH SCH ×3 (08:53→20:17)
[2023-02-26] MEDS: ACETYLCYSTEINE 800 MG/4 ML VIAL NEB SCH ×2 (08:53→20:17)
[2023-02-26] MEDS: VENLAFAXINE 75 MG TABLET PO SCH ×2 (09:17→21:32)
[2023-02-26] MEDS: guaiFENesin 600 MG TAB.SR.12H PO SCH ×2 (09:17→21:32)
[2023-02-26] MEDS: DONEPEZIL 10 MG TABLET PO SCH (09:17)
[2023-02-26] MEDS: ASPIRIN 81 MG TAB.CHEW PO SCH ×2 (09:17→21:33)
[2023-02-26] MEDS: LEVOTHYROXINE SODIUM 112 MCG TABLET PO SCH (09:17)
[2023-02-26] MEDS: PROPRANOLOL 10 MG TABLET PO SCH ×2 (09:17→21:32)
[2023-02-26] MEDS: CHLORHEXIDINE GLUCONATE 15 ML UDC SWABMOUTH SCH ×2 (09:18→21:31)
[2023-02-26] MEDS: POTASSIUM CHLORIDE 20 MEQ/15 ML ML PT SCH ×2 (09:18→16:49)
[2023-02-26] MEDS: FAMOTIDINE/PF 20 MG/2 ML VIAL IV SCH ×2 (09:18→21:31)
[2023-02-26] MEDS: VALPROIC ACIDS 250 MG/5 ML ORAL.SOL PT SCH ×2 (09:18→21:30)
[2023-02-26] MEDS: ENOXAPARIN 40 MG/0.4 ML SYRINGE SQ SCH (09:18)
[2023-02-26] MEDS: traMADol 50 MG TABLET PO PRN (09:18)
[2023-02-26] MEDS: CEFEPIME 1 GM VIAL IV SCH ×2 (09:19→21:31)
[2023-02-26] MEDS: DOCUSATE SODIUM 100 MG CAPSULE PO SCH ×2 (09:34→21:12)
[2023-02-26] MEDS: DEXTROSE 5% IN WATER 1,000 ML IV SCH (09:34)
[2023-02-26] MEDS: LIDOCAINE PATCH TOPICAL SCH (12:52)
[2023-02-26] MEDS: SIMVASTATIN 20 MG TABLET PT SCH (21:33)
[2023-02-27] MEDS: hydrALAZINE 20 MG/ML VIAL IV PRN ×2 (04:05→14:31)
[2023-02-27] MEDS: 0.9 % SODIUM CHLORIDE 10 ML SYRINGE IV SCH ×3 (04:06→22:36)
[2023-02-27] MEDS: IPRATROPIUM/ALBUTEROL 3 ML AMPUL.NEB NEB PRN ×2 (04:42→21:25)
[2023-02-27 07:11] LABS: Basophils # (Auto) 0.03 K/mcL (0.00-0.30); Basophils % (Auto) 0.1 % (0.0-2.0); Eosinophils # (Auto) 0.43 K/mcL (0.00-0.70); Eosinophils % (Auto) 1.8 % (0.0-7.0); Hematocrit 40.7 % (34.1-44.9); Hemoglobin 13.2 g/dL (11.2-15.7); Lymphocytes # (Auto) 2.45 K/mcL (1.50-4.80); Lymphocytes % (Auto) 10.2 % (15.5-49.0); Mean Cell Volume 93.8 fL (80.0-100.0); Mean Corpuscular HGB Conc 32.4 g/dL (31.0-36.0); Monocytes # (Auto) 2.52 K/mcL (0.10-0.90); Monocytes % (Auto) 10.5 % (1.0-12.0); Neutrophils % (Auto) 68.2 % (38.0-78.0); Platelet Count 249 K/mcL (140-440); RBC 4.34 M/mcL (3.59-5.38); WBC 23.9 K/mcL (4.5-11.0)
[2023-02-27] MEDS: ACETYLCYSTEINE 800 MG/4 ML VIAL NEB SCH ×2 (07:15→21:25)
[2023-02-27] MEDS: BUDESONIDE 0.5 MG/2 ML AMPUL.NEB NEB SCH ×2 (07:15→21:25)
[2023-02-27] MEDS: SODIUM CHLORIDE FOR INHALATION INH SCH ×3 (07:15→21:26)
[2023-02-27 07:22] LABS: ALT/SGPT 22 U/L (<40); AST/SGOT 25 U/L (<32); Albumin 3.2 gm/dL (3.2-5.2); Albumin/Globulin Ratio 1.1 (1.0-2.3); Alkaline Phosphatase 71 U/L (39-117); Bilirubin,Total 0.4 mg/dL (0.1-1.0); Blood Urea Nitrogen 26 mg/dL (8-23); Calcium 10.2 mg/dL (8.6-10.4); Carbon Dioxide 29 mmol/L (22-30); Chloride 103 mmol/L (96-108); Glomerular Filtration Rate 87; Glucose 122 mg/dL (70-105)
[2023-02-27] MEDS: LEVOTHYROXINE SODIUM 112 MCG TABLET PO SCH (07:34)
[2023-02-27] MEDS: ENOXAPARIN 40 MG/0.4 ML SYRINGE SQ SCH (08:42)
[2023-02-27] MEDS: CHLORHEXIDINE GLUCONATE 15 ML UDC SWABMOUTH SCH ×2 (08:42→21:42)
[2023-02-27] MEDS: POTASSIUM CHLORIDE 20 MEQ/15 ML ML PT SCH ×2 (08:43→17:34)
[2023-02-27] MEDS: ASPIRIN 81 MG TAB.CHEW PO SCH ×2 (08:44→21:39)
[2023-02-27] MEDS: VENLAFAXINE 75 MG TABLET PO SCH ×2 (08:45→21:41)
[2023-02-27] MEDS: guaiFENesin 600 MG TAB.SR.12H PO SCH ×2 (08:45→21:41)
[2023-02-27] MEDS: PROPRANOLOL 10 MG TABLET PO SCH ×2 (08:45→21:41)
[2023-02-27] MEDS: FAMOTIDINE/PF 20 MG/2 ML VIAL IV SCH ×2 (08:52→21:41)
[2023-02-27] MEDS: DOCUSATE SODIUM 100 MG CAPSULE PO SCH ×2 (09:41→21:39)
[2023-02-27] MEDS: LIDOCAINE PATCH TOPICAL SCH (10:13)
[2023-02-27] MEDS: VALPROIC ACIDS 250 MG/5 ML ORAL.SOL PT SCH ×2 (10:14→21:39)
[2023-02-27] MEDS: CEFEPIME 1 GM VIAL IV SCH ×2 (10:14→21:41)
[2023-02-27] MEDS: DONEPEZIL 10 MG TABLET PO SCH (11:02)
[2023-02-27] MEDS: LOPERAMIDE 2 MG CAPSULE PO PRN ×3 (14:25→17:34)
[2023-02-27] MEDS ORDERED: METOPROLOL TARTRATE 5 MG/5 ML VIAL IV PRN ×2 (14:29→14:31)
[2023-02-27] MEDS: metroNIDAZOLE 500 MG/100 ML BAG IV SCH ×2 (14:30→21:42)
[2023-02-27] MEDS: fentaNYL 100 MCG/2 ML VIAL IV PRN (21:41)
[2023-02-27] MEDS: SIMVASTATIN 20 MG TABLET PT SCH (21:42)
[2023-02-28] MEDS: traMADol 50 MG TABLET PO PRN (03:28)
[2023-02-28] MEDS: 0.9 % SODIUM CHLORIDE 10 ML SYRINGE IV SCH ×3 (06:01→21:21)
[2023-02-28] MEDS: metroNIDAZOLE 500 MG/100 ML BAG IV SCH ×4 (06:01→21:20)
[2023-02-28 06:19] LABS: Basophils # (Auto) 0.17 K/mcL (0.00-0.30); Basophils % (Auto) 0.7 % (0.0-2.0); Eosinophils # (Auto) 0.17 K/mcL (0.00-0.70); Eosinophils % (Auto) 0.7 % (0.0-7.0); Hematocrit 37.8 % (34.1-44.9); Hemoglobin 12.4 g/dL (11.2-15.7); Lymphocytes # (Auto) 2.16 K/mcL (1.50-4.80); Lymphocytes % (Auto) 8.7 % (15.5-49.0); Mean Cell Volume 93.6 fL (80.0-100.0); Mean Corpuscular HGB Conc 32.8 g/dL (31.0-36.0); Mean Platelet Volume 10.9 fL (8.8-12.5); Monocytes # (Auto) 2.49 K/mcL (0.10-0.90); Neutrophils % (Auto) 73.8 % (38.0-78.0); Platelet Count 220 K/mcL (140-440); RBC 4.04 M/mcL (3.59-5.38); Red Cell Distribution Width 15.8 % (11.5-14.5)
[2023-02-28 06:41] LABS: ALT/SGPT 18 U/L (<40); AST/SGOT 25 U/L (<32); Albumin 2.9 gm/dL (3.2-5.2); Alkaline Phosphatase 61 U/L (39-117); Bilirubin,Total 0.3 mg/dL (0.1-1.0); Blood Urea Nitrogen 34 mg/dL (8-23); Calcium 9.9 mg/dL (8.6-10.4); Carbon Dioxide 33 mmol/L (22-30); Chloride 109 mmol/L (96-108); Globulin 2.8 gm/dL (2.2-3.7); Glomerular Filtration Rate 64; Glucose 114 mg/dL (70-105)
[2023-02-28] MEDS: ACETYLCYSTEINE 800 MG/4 ML VIAL NEB SCH ×2 (07:20→21:26)
[2023-02-28] MEDS: SODIUM CHLORIDE FOR INHALATION INH SCH ×3 (07:20→21:25)
[2023-02-28] MEDS: BUDESONIDE 0.5 MG/2 ML AMPUL.NEB NEB SCH ×2 (07:20→21:26)
[2023-02-28] MEDS: CEFEPIME 1 GM VIAL IV SCH ×2 (08:30→21:19)
[2023-02-28] MEDS: FAMOTIDINE/PF 20 MG/2 ML VIAL IV SCH ×2 (08:30→21:19)
[2023-02-28] MEDS: ASPIRIN 81 MG TAB.CHEW PO SCH ×2 (08:31→21:18)
[2023-02-28] MEDS: PROPRANOLOL 10 MG TABLET PO SCH ×2 (08:31→21:18)
[2023-02-28] MEDS: VENLAFAXINE 75 MG TABLET PO SCH ×2 (08:31→21:18)
[2023-02-28] MEDS: POTASSIUM CHLORIDE 20 MEQ/15 ML ML PT SCH ×2 (08:31→17:30)
[2023-02-28] MEDS: ENOXAPARIN 40 MG/0.4 ML SYRINGE SQ SCH (08:31)
[2023-02-28] MEDS: LOPERAMIDE 2 MG CAPSULE PO PRN (08:31)
[2023-02-28] MEDS: LEVOTHYROXINE SODIUM 112 MCG TABLET PO SCH (08:31)
[2023-02-28] MEDS: CHLORHEXIDINE GLUCONATE 15 ML UDC SWABMOUTH SCH ×2 (08:32→21:20)
[2023-02-28] MEDS: guaiFENesin 600 MG TAB.SR.12H PO SCH (08:32)
[2023-02-28] MEDS: DOCUSATE SODIUM 100 MG CAPSULE PO SCH ×2 (08:33→21:18)
[2023-02-28] MEDS: VALPROIC ACIDS 250 MG/5 ML ORAL.SOL PT SCH ×2 (08:57→21:18)
[2023-02-28] MEDS: LIDOCAINE PATCH TOPICAL SCH (11:56)
[2023-02-28] MEDS: amLODIPine 5 MG TABLET PO SCH (11:56)
[2023-02-28] MEDS: DONEPEZIL 10 MG TABLET PO SCH (11:57)
[2023-02-28] MEDS: hydrALAZINE 20 MG/ML VIAL IV PRN (14:05)
[2023-02-28] MEDS: SIMVASTATIN 20 MG TABLET PT SCH (21:19)
[2023-02-28] MEDS: IPRATROPIUM/ALBUTEROL 3 ML AMPUL.NEB NEB PRN (21:26)
[2023-03-01] MEDS: metroNIDAZOLE 500 MG/100 ML BAG IV SCH ×3 (05:24→20:37)
[2023-03-01] MEDS: 0.9 % SODIUM CHLORIDE 10 ML SYRINGE IV SCH ×3 (05:25→20:38)
[2023-03-01 07:28] LABS: ALT/SGPT 23 U/L (<40); AST/SGOT 36 U/L (<32); Albumin/Globulin Ratio 0.9 (1.0-2.3); Alkaline Phosphatase 61 U/L (39-117); Bilirubin,Total 0.2 mg/dL (0.1-1.0); Blood Urea Nitrogen 38 mg/dL (8-23); Carbon Dioxide 31 mmol/L (22-30); Chloride 109 mmol/L (96-108); Globulin 3.2 gm/dL (2.2-3.7); Glomerular Filtration Rate 64; Glucose 88 mg/dL (70-105)
[2023-03-01 07:56] LABS: Basophils # (Auto) 0.03 K/mcL (0.00-0.30); Basophils % (Auto) 0.1 % (0.0-2.0); Eosinophils # (Auto) 0.31 K/mcL (0.00-0.70); Hematocrit 40.1 % (34.1-44.9); Hemoglobin 12.2 g/dL (11.2-15.7); Lymphocytes # (Auto) 2.49 K/mcL (1.50-4.80); Lymphocytes % (Auto) 8.3 % (15.5-49.0); Mean Corpuscular HGB Conc 30.4 g/dL (31.0-36.0); Mean Platelet Volume 11.1 fL (8.8-12.5); Monocytes # (Auto) 2.92 K/mcL (0.10-0.90); Monocytes % (Auto) 9.7 % (1.0-12.0); Neutrophils % (Auto) 76.4 % (38.0-78.0); Platelet Count 211 K/mcL (140-440); RBC 4.01 M/mcL (3.59-5.38); Red Cell Distribution Width 16.4 % (11.5-14.5); WBC 30.2 K/mcL (4.5-11.0)
[2023-03-01] MEDS: BUDESONIDE 0.5 MG/2 ML AMPUL.NEB NEB SCH ×2 (08:09→19:00)
[2023-03-01] MEDS: ACETYLCYSTEINE 800 MG/4 ML VIAL NEB SCH ×2 (08:09→19:00)
[2023-03-01] MEDS: IPRATROPIUM/ALBUTEROL 3 ML AMPUL.NEB NEB PRN ×2 (08:09→14:56)
[2023-03-01] MEDS: SODIUM CHLORIDE FOR INHALATION INH SCH ×3 (08:10→19:00)
[2023-03-01] MEDS: LEVOTHYROXINE SODIUM 112 MCG TABLET PO SCH (08:25)
[2023-03-01] MEDS: ACETAMINOPHEN 325 MG TABLET PO PRN (08:25)
[2023-03-01] MEDS: POTASSIUM CHLORIDE 20 MEQ/15 ML ML PT SCH ×2 (08:26→17:22)
[2023-03-01] MEDS: ASPIRIN 81 MG TAB.CHEW PO SCH ×2 (08:26→20:36)
[2023-03-01] MEDS: PROPRANOLOL 10 MG TABLET PO SCH ×2 (08:26→20:36)
[2023-03-01] MEDS: amLODIPine 5 MG TABLET PO SCH (08:26)
[2023-03-01] MEDS: DOCUSATE SODIUM 100 MG CAPSULE PO SCH ×2 (08:26→20:38)
[2023-03-01] MEDS: VENLAFAXINE 75 MG TABLET PO SCH ×2 (08:26→20:36)
[2023-03-01] MEDS: CHLORHEXIDINE GLUCONATE 15 ML UDC SWABMOUTH SCH ×2 (08:27→20:37)
[2023-03-01] MEDS: DONEPEZIL 10 MG TABLET PO SCH (08:27)
[2023-03-01] MEDS: FAMOTIDINE/PF 20 MG/2 ML VIAL IV SCH ×2 (08:27→20:36)
[2023-03-01] MEDS: ENOXAPARIN 40 MG/0.4 ML SYRINGE SQ SCH (08:27)
[2023-03-01] MEDS: VALPROIC ACIDS 250 MG/5 ML ORAL.SOL PT SCH ×2 (08:27→20:36)
[2023-03-01] MEDS: CEFEPIME 1 GM VIAL IV SCH ×2 (08:28→20:36)
[2023-03-01] MEDS: LIDOCAINE PATCH TOPICAL SCH (08:28)
[2023-03-01] MEDS: guaiFENesin/DEXTROMETHORPHAN 5ML UD CUP PO PRN (08:28)
[2023-03-01] MEDS ORDERED: FUROSEMIDE 40 MG/4 ML VIAL IV ONE (08:44)
[2023-03-01 19:13] LABS: Appearance,Urine HAZY (Clear); Bacteria,Urine FEW /hpf (0); Bilirubin,Urine Negative (Negative); Color,Urine YELLOW; Culture Indicated,Urine Yes; Glucose,Urine (UA) Negative (Negative); Ketones,Urine Negative (Negative); Leukocyte Esterase,Urine Negative /uL (Negative); Mucus,Urine FEW /hpf; Nitrate,Urine Negative (Negative); Protein,Urine 30 mg/dL (Negative); Specific Gravity,Urine 1.011 (1.000-1.035); Urine Blood Negative (Negative); Urine RBC 2 /hpf (0-3); Urine Squamous Epithelial Cell 6 /hpf (0-4); Urine WBC 2 /hpf (0-4); Urobilinogen,Urine Negative
[2023-03-01] MEDS: SIMVASTATIN 20 MG TABLET PT SCH (20:37)
[2023-03-01] MEDS: NYSTATIN POWDER BOTTLE 15GM TOPICAL SCH (21:09)
[2023-03-02] MEDS: 0.9 % SODIUM CHLORIDE 10 ML SYRINGE IV SCH ×3 (05:27→21:49)
[2023-03-02] MEDS: metroNIDAZOLE 500 MG/100 ML BAG IV SCH (05:28)
[2023-03-02 05:37] LABS: Basophils # (Auto) 0.11 K/mcL (0.00-0.30); Basophils % (Auto) 0.5 % (0.0-2.0); Eosinophils # (Auto) 0.33 K/mcL (0.00-0.70); Eosinophils % (Auto) 1.5 % (0.0-7.0); Hematocrit 33.7 % (34.1-44.9); Hemoglobin 10.5 g/dL (11.2-15.7); Lymphocytes # (Auto) 1.79 K/mcL (1.50-4.80); Lymphocytes % (Auto) 8.1 % (15.5-49.0); Mean Cell Volume 97.7 fL (80.0-100.0); Mean Corpuscular HGB Conc 31.2 g/dL (31.0-36.0); Mean Platelet Volume 11.4 fL (8.8-12.5); Monocytes # (Auto) 1.61 K/mcL (0.10-0.90); Monocytes % (Auto) 7.3 % (1.0-12.0); Neutrophils % (Auto) 80.1 % (38.0-78.0); Platelet Count 219 K/mcL (140-440); RBC 3.45 M/mcL (3.59-5.38); WBC 22.2 K/mcL (4.5-11.0)
[2023-03-02 06:09] LABS: ALT/SGPT 23 U/L (<40); AST/SGOT 30 U/L (<32); Albumin 2.7 gm/dL (3.2-5.2); Albumin/Globulin Ratio 0.9 (1.0-2.3); Alkaline Phosphatase 44 U/L (39-117); Bilirubin,Total 0.3 mg/dL (0.1-1.0); Blood Urea Nitrogen 37 mg/dL (8-23); Calcium 9.4 mg/dL (8.6-10.4); Carbon Dioxide 32 mmol/L (22-30); Chloride 106 mmol/L (96-108); Glomerular Filtration Rate 64; Glucose 75 mg/dL (70-105)
[2023-03-02] MEDS: POTASSIUM CHLORIDE 20 MEQ/15 ML ML PT SCH ×2 (07:49→16:58)
[2023-03-02] MEDS: LEVOTHYROXINE SODIUM 112 MCG TABLET PO SCH (07:49)
[2023-03-02] MEDS: IPRATROPIUM/ALBUTEROL 3 ML AMPUL.NEB NEB PRN ×2 (08:25→18:43)
[2023-03-02] MEDS: ACETYLCYSTEINE 800 MG/4 ML VIAL NEB SCH ×3 (08:25→19:18)
[2023-03-02] MEDS: SODIUM CHLORIDE FOR INHALATION INH SCH (08:25)
[2023-03-02] MEDS: BUDESONIDE 0.5 MG/2 ML AMPUL.NEB NEB SCH ×3 (08:25→19:19)
[2023-03-02] MEDS: VALPROIC ACIDS 250 MG/5 ML ORAL.SOL PT SCH ×2 (09:02→21:48)
[2023-03-02] MEDS: ENOXAPARIN 40 MG/0.4 ML SYRINGE SQ SCH (09:02)
[2023-03-02] MEDS: CHLORHEXIDINE GLUCONATE 15 ML UDC SWABMOUTH SCH ×2 (09:03→21:47)
[2023-03-02] MEDS: FAMOTIDINE/PF 20 MG/2 ML VIAL IV SCH ×2 (09:03→21:46)
[2023-03-02] MEDS: NYSTATIN POWDER BOTTLE 15GM TOPICAL SCH ×2 (09:03→21:47)
[2023-03-02] MEDS: DONEPEZIL 10 MG TABLET PO SCH (09:03)
[2023-03-02] MEDS: CEFEPIME 1 GM VIAL IV SCH (09:03)
[2023-03-02] MEDS: ASPIRIN 81 MG TAB.CHEW PO SCH ×2 (09:03→21:47)
[2023-03-02] MEDS: guaiFENesin/DEXTROMETHORPHAN 5ML UD CUP PO PRN (09:03)
[2023-03-02] MEDS: PROPRANOLOL 10 MG TABLET PO SCH ×2 (09:04→21:47)
[2023-03-02] MEDS: ACETAMINOPHEN 325 MG TABLET PO PRN (09:04)
[2023-03-02] MEDS: VENLAFAXINE 75 MG TABLET PO SCH ×2 (09:04→21:47)
[2023-03-02] MEDS: amLODIPine 5 MG TABLET PO SCH (09:04)
[2023-03-02] MEDS: DOCUSATE SODIUM 100 MG CAPSULE PO SCH ×2 (09:04→21:48)
[2023-03-02] MEDS: LIDOCAINE PATCH TOPICAL SCH (09:07)
[2023-03-02] MEDS: MEROPENEM 1 GM in 0.9 % SODIUM CHLORIDE 50 ML IV SCH ×3 (10:36→21:48)
[2023-03-02] MEDS ORDERED: PREGABALIN 100 MG CAPSULE PO ONE (11:45)
[2023-03-02] MEDS ORDERED: HYDROCHLOROTHIAZIDE 25 MG TABLET PO SCH (12:57)
[2023-03-02] MEDS ORDERED: DEXTROSE 5% IN WATER 1,000 ML IV SCH (13:00)
[2023-03-02] MEDS ORDERED: VANCOMYCIN PER PHARMACY IV SCH (13:12)
[2023-03-02] MEDS: VANCOMYCIN 1,000 MG in 0.9 % SODIUM CHLORIDE 250 ML IV SCH (13:56)
[2023-03-02 15:33] LABS: Anisocytosis 2+ (None Seen); Band Neutrophils % 36 % (0-10); Eosinophils % (Manual) 1 % (0-7); Lymphocytes % 6 % (15-49); Monocytes % (Manual) 8 % (1-12); Platelet Estimate NORMAL (Normal); RBC Morphology ABNORMAL (Normal); Segmented Neutrophils % 49 % (38-78)
[2023-03-02] MEDS: PREGABALIN 100 MG CAPSULE PO SCH (21:47)
[2023-03-02] MEDS: SIMVASTATIN 20 MG TABLET PT SCH (21:48)
[2023-03-03] MEDS: 0.9 % SODIUM CHLORIDE 10 ML SYRINGE IV SCH ×3 (05:39→21:05)
[2023-03-03] MEDS: MEROPENEM 1 GM in 0.9 % SODIUM CHLORIDE 50 ML IV SCH ×3 (05:40→21:05)
[2023-03-03 06:25] LABS: Hematocrit 30.5 % (34.1-44.9); Hemoglobin 9.7 g/dL (11.2-15.7); Mean Cell Volume 96.5 fL (80.0-100.0); Mean Corpuscular HGB Conc 31.8 g/dL (31.0-36.0); Mean Platelet Volume 11.2 fL (8.8-12.5); Platelet Count 234 K/mcL (140-440); RBC 3.16 M/mcL (3.59-5.38); Red Cell Distribution Width 15.3 % (11.5-14.5); WBC 23.1 K/mcL (4.5-11.0)
[2023-03-03 06:49] LABS: ALT/SGPT 16 U/L (<40); AST/SGOT 19 U/L (<32); Albumin 2.8 gm/dL (3.2-5.2); Albumin/Globulin Ratio 1.1 (1.0-2.3); Alkaline Phosphatase 39 U/L (39-117); Bilirubin,Direct < 0.2 mg/dL (0-0.3); Bilirubin,Total 0.3 mg/dL (0.1-1.0); Blood Urea Nitrogen 31 mg/dL (8-23); Carbon Dioxide 32 mmol/L (22-30); Chloride 104 mmol/L (96-108); Globulin 2.6 gm/dL (2.2-3.7); Glomerular Filtration Rate 64; Glucose 78 mg/dL (70-105); Lactate Dehydrogenase 327 U/L (135-225); Phosphorous 3.9 mg/dL (2.5-4.5); Triglycerides 77 mg/dL (<150); Uric Acid 5.6 mg/dL (2.5-8.0)
[2023-03-03] MEDS: LEVOTHYROXINE SODIUM 112 MCG TABLET PO SCH (07:50)
[2023-03-03] MEDS: NYSTATIN POWDER BOTTLE 15GM TOPICAL SCH ×2 (07:50→20:52)
[2023-03-03] MEDS: traMADol 50 MG TABLET PO PRN ×2 (07:51→18:22)
[2023-03-03] MEDS: BACLOFEN 10 MG TABLET PO PRN ×3 (07:51→20:56)
[2023-03-03] MEDS: PREGABALIN 100 MG CAPSULE PO SCH ×2 (07:51→20:51)
[2023-03-03] MEDS: DOCUSATE SODIUM 100 MG CAPSULE PO SCH ×2 (07:57→20:40)
[2023-03-03] MEDS: BUDESONIDE 0.5 MG/2 ML AMPUL.NEB NEB SCH ×2 (08:23→19:44)
[2023-03-03] MEDS: ACETYLCYSTEINE 800 MG/4 ML VIAL NEB SCH ×2 (08:23→19:44)
[2023-03-03] MEDS: IPRATROPIUM/ALBUTEROL 3 ML AMPUL.NEB NEB PRN ×2 (08:23→19:44)
[2023-03-03] MEDS: POTASSIUM CHLORIDE 20 MEQ/15 ML ML PT SCH (10:19)
[2023-03-03] MEDS: FAMOTIDINE/PF 20 MG/2 ML VIAL IV SCH (10:19)
[2023-03-03] MEDS: amLODIPine 5 MG TABLET PO SCH ×2 (10:19→10:31)
[2023-03-03] MEDS: CHLORHEXIDINE GLUCONATE 15 ML UDC SWABMOUTH SCH ×2 (10:30→20:52)
[2023-03-03] MEDS: ENOXAPARIN 40 MG/0.4 ML SYRINGE SQ SCH (10:30)
[2023-03-03] MEDS: LOPERAMIDE 2 MG CAPSULE PO PRN ×2 (10:31→18:24)
[2023-03-03] MEDS: ASPIRIN 81 MG TAB.CHEW PO SCH ×2 (10:31→20:51)
[2023-03-03] MEDS: FAMOTIDINE 20 MG TABLET PO SCH ×2 (10:31→20:52)
[2023-03-03] MEDS: VENLAFAXINE 150 MG CAP.XL.24H PO SCH (10:31)
[2023-03-03] MEDS: PROPRANOLOL 10 MG TABLET PO SCH ×2 (10:31→20:51)
[2023-03-03] MEDS: DONEPEZIL 10 MG TABLET PO SCH (10:31)
[2023-03-03] MEDS: oxyCODONE IR 5 MG TABLET PO PRN ×2 (10:31→16:29)
[2023-03-03] MEDS: LIDOCAINE PATCH TOPICAL SCH (10:43)
[2023-03-03] MEDS ORDERED: LABETALOL HCL 20 MG/4 ML SYRINGE IV PRN ×2 (11:30)
[2023-03-03] MEDS: VALPROIC ACIDS 250 MG/5 ML ORAL.SOL PT SCH (11:32)
[2023-03-03] MEDS: VENLAFAXINE 75 MG TABLET PO SCH (11:32)
[2023-03-03] MEDS: VANCOMYCIN 1,000 MG in 0.9 % SODIUM CHLORIDE 250 ML IV SCH (13:33)
[2023-03-03 19:54] LABS: Anisocytosis 1+ (None Seen); Band Neutrophils % 9 % (0-10); Basophils % (Manual) 1 % (0-2); Eosinophils % (Manual) 3 % (0-7); Hypochromasia 1+ (None Seen); Lymphocytes % 9 % (15-49); Macrocytosis 1+ (None Seen); Monocytes % (Manual) 6 % (1-12); Platelet Estimate NORMAL (Normal); RBC Morphology ABNORMAL (Normal); Segmented Neutrophils % 72 % (38-78)
[2023-03-03] MEDS: DIVALPROEX SODIUM 250 MG TABLET PO SCH (20:51)
[2023-03-03] MEDS: SIMVASTATIN 20 MG TABLET PO SCH (20:52)
[2023-03-04] MEDS: MEROPENEM 1 GM in 0.9 % SODIUM CHLORIDE 50 ML IV SCH ×2 (06:12→13:54)
[2023-03-04] MEDS: 0.9 % SODIUM CHLORIDE 10 ML SYRINGE IV SCH ×3 (06:12→20:51)
[2023-03-04 06:59] LABS: Basophils # (Auto) 0.09 K/mcL (0.00-0.30); Basophils % (Auto) 0.6 % (0.0-2.0); Eosinophils # (Auto) 0.33 K/mcL (0.00-0.70); Hematocrit 34.2 % (34.1-44.9); Hemoglobin 10.3 g/dL (11.2-15.7); Lymphocytes # (Auto) 2.32 K/mcL (1.50-4.80); Lymphocytes % (Auto) 14.3 % (15.5-49.0); Mean Cell Volume 101.5 fL (80.0-100.0); Mean Corpuscular HGB Conc 30.1 g/dL (31.0-36.0); Mean Platelet Volume 11.4 fL (8.8-12.5); Monocytes # (Auto) 1.16 K/mcL (0.10-0.90); Monocytes % (Auto) 7.2 % (1.0-12.0); Neutrophils % (Auto) 74.5 % (38.0-78.0); Platelet Count 233 K/mcL (140-440); RBC 3.37 M/mcL (3.59-5.38); Red Cell Distribution Width 15.2 % (11.5-14.5); WBC 16.2 K/mcL (4.5-11.0)
[2023-03-04 07:19] LABS: ALT/SGPT 14 U/L (<40); AST/SGOT 16 U/L (<32); Albumin 2.7 gm/dL (3.2-5.2); Albumin/Globulin Ratio 0.9 (1.0-2.3); Alkaline Phosphatase 41 U/L (39-117); Bilirubin,Direct < 0.2 mg/dL (0-0.3); Bilirubin,Total 0.3 mg/dL (0.1-1.0); Blood Urea Nitrogen 29 mg/dL (8-23); Carbon Dioxide 29 mmol/L (22-30); Chloride 104 mmol/L (96-108); Globulin 2.9 gm/dL (2.2-3.7); Glomerular Filtration Rate 57; Glucose 78 mg/dL (70-105); Lactate Dehydrogenase 291 U/L (135-225); Phosphorous 3.5 mg/dL (2.5-4.5); Triglycerides 126 mg/dL (<150)
[2023-03-04] MEDS: IPRATROPIUM/ALBUTEROL 3 ML AMPUL.NEB NEB PRN ×2 (08:24→19:52)
[2023-03-04] MEDS: BUDESONIDE 0.5 MG/2 ML AMPUL.NEB NEB SCH ×2 (08:24→19:52)
[2023-03-04] MEDS: CHLORHEXIDINE GLUCONATE 15 ML UDC SWABMOUTH SCH ×2 (08:33→20:49)
[2023-03-04] MEDS: ENOXAPARIN 40 MG/0.4 ML SYRINGE SQ SCH (08:33)
[2023-03-04] MEDS: ASPIRIN 81 MG TAB.CHEW PO SCH ×2 (08:33→20:50)
[2023-03-04] MEDS: DONEPEZIL 10 MG TABLET PO SCH (08:33)
[2023-03-04] MEDS: LIDOCAINE PATCH TOPICAL SCH (08:33)
[2023-03-04] MEDS: FAMOTIDINE 20 MG TABLET PO SCH ×2 (08:34→20:51)
[2023-03-04] MEDS: amLODIPine 5 MG TABLET PO SCH (08:34)
[2023-03-04] MEDS: PREGABALIN 100 MG CAPSULE PO SCH ×3 (08:34→20:41)
[2023-03-04] MEDS: VENLAFAXINE 150 MG CAP.XL.24H PO SCH (08:34)
[2023-03-04] MEDS: LEVOTHYROXINE SODIUM 112 MCG TABLET PO SCH (08:34)
[2023-03-04] MEDS: PROPRANOLOL 10 MG TABLET PO SCH ×2 (08:35→20:51)
[2023-03-04] MEDS: NYSTATIN POWDER BOTTLE 15GM TOPICAL SCH ×2 (08:35→20:49)
[2023-03-04] MEDS: DOCUSATE SODIUM 100 MG CAPSULE PO SCH ×2 (08:35→20:41)
[2023-03-04] MEDS: VANCOMYCIN 1,000 MG in 0.9 % SODIUM CHLORIDE 250 ML IV SCH (15:05)
[2023-03-04] MEDS: PIPERACILLIN SODIUM/TAZOBACTAM 3.375 GM in DEXTROSE 5% IN WATER 50 ML IV SCH ×2 (18:34→23:52)
[2023-03-04] MEDS: SIMVASTATIN 20 MG TABLET PO SCH (20:50)
[2023-03-04] MEDS: DIVALPROEX SODIUM 250 MG TABLET PO SCH (20:50)
[2023-03-04] MEDS: BACLOFEN 10 MG TABLET PO PRN (22:37)
[2023-03-04] MEDS: oxyCODONE IR 5 MG TABLET PO PRN (23:36)
[2023-03-05] MEDS: 0.9 % SODIUM CHLORIDE 10 ML SYRINGE IV SCH ×3 (05:58→20:11)
[2023-03-05] MEDS: PIPERACILLIN SODIUM/TAZOBACTAM 3.375 GM in DEXTROSE 5% IN WATER 50 ML IV SCH (05:58)
[2023-03-05 06:37] LABS: Basophils % (Auto) 0.6 % (0.0-2.0); Eosinophils # (Auto) 0.19 K/mcL (0.00-0.70); Eosinophils % (Auto) 1.2 % (0.0-7.0); Hematocrit 32.7 % (34.1-44.9); Hemoglobin 9.9 g/dL (11.2-15.7); Mean Cell Volume 102.8 fL (80.0-100.0); Mean Corpuscular HGB Conc 30.3 g/dL (31.0-36.0); Mean Platelet Volume 11.6 fL (8.8-12.5); Monocytes % (Auto) 9.1 % (1.0-12.0); Neutrophils % (Auto) 74.9 % (38.0-78.0); Platelet Count 237 K/mcL (140-440); RBC 3.18 M/mcL (3.59-5.38); Red Cell Distribution Width 15.2 % (11.5-14.5); WBC 15.4 K/mcL (4.5-11.0)
[2023-03-05 07:14] LABS: Blood Urea Nitrogen 27 mg/dL (8-23); Calcium 8.8 mg/dL (8.6-10.4); Carbon Dioxide 29 mmol/L (22-30); Chloride 105 mmol/L (96-108); Glomerular Filtration Rate 64; Glucose 80 mg/dL (70-105)
[2023-03-05] MEDS: ENOXAPARIN 40 MG/0.4 ML SYRINGE SQ SCH (08:24)
[2023-03-05] MEDS: PREGABALIN 100 MG CAPSULE PO SCH ×2 (08:39→20:09)
[2023-03-05] MEDS: LEVOTHYROXINE SODIUM 112 MCG TABLET PO SCH (08:39)
[2023-03-05] MEDS: VENLAFAXINE 150 MG CAP.XL.24H PO SCH (08:40)
[2023-03-05] MEDS: PROPRANOLOL 10 MG TABLET PO SCH ×2 (08:40→20:09)
[2023-03-05] MEDS: FAMOTIDINE 20 MG TABLET PO SCH ×2 (08:41→20:09)
[2023-03-05] MEDS: amLODIPine 5 MG TABLET PO SCH (08:41)
[2023-03-05] MEDS: DONEPEZIL 10 MG TABLET PO SCH (08:42)
[2023-03-05] MEDS: ASPIRIN 81 MG TAB.CHEW PO SCH ×2 (08:43→20:09)
[2023-03-05] MEDS: DOCUSATE SODIUM 100 MG CAPSULE PO SCH ×2 (08:45→19:54)
[2023-03-05] MEDS: IPRATROPIUM/ALBUTEROL 3 ML AMPUL.NEB NEB PRN ×2 (09:06→19:57)
[2023-03-05] MEDS: BUDESONIDE 0.5 MG/2 ML AMPUL.NEB NEB SCH ×2 (09:06→19:57)
[2023-03-05] MEDS ORDERED: METHOCARBAMOL 750 MG TABLET PO PRN (09:29)
[2023-03-05] MEDS: LIDOCAINE PATCH TOPICAL SCH (10:20)
[2023-03-05] MEDS: CHLORHEXIDINE GLUCONATE 15 ML UDC SWABMOUTH SCH ×2 (10:20→20:08)
[2023-03-05] MEDS: NYSTATIN POWDER BOTTLE 15GM TOPICAL SCH ×2 (10:20→20:08)
[2023-03-05] MEDS: VANCOMYCIN 1,000 MG in 0.9 % SODIUM CHLORIDE 250 ML IV SCH (10:20)
[2023-03-05] MEDS: BACLOFEN 10 MG TABLET PO PRN (13:02)
[2023-03-05] MEDS: DIVALPROEX SODIUM 250 MG TABLET PO SCH (20:08)
[2023-03-05] MEDS: SIMVASTATIN 20 MG TABLET PO SCH (20:10)
[2023-03-05] MEDS ORDERED: traZODone HCL 50 MG TABLET PO PRN (21:00)
[2023-03-05] MEDS: oxyCODONE IR 5 MG TABLET PO PRN (23:35)
[2023-03-06] MEDS: ACETAMINOPHEN 325 MG TABLET PO PRN (04:08)
[2023-03-06] MEDS: 0.9 % SODIUM CHLORIDE 10 ML SYRINGE IV SCH ×3 (05:07→20:31)
[2023-03-06 07:01] LABS: Mean Platelet Volume 11.9 fL (8.8-12.5); Platelet Count 253 K/mcL (140-440); WBC 14.5 K/mcL (4.5-11.0)
[2023-03-06] MEDS: LEVOTHYROXINE SODIUM 112 MCG TABLET PO SCH (07:31)
[2023-03-06] MEDS: IPRATROPIUM/ALBUTEROL 3 ML AMPUL.NEB NEB PRN (07:40)
[2023-03-06] MEDS: BUDESONIDE 0.5 MG/2 ML AMPUL.NEB NEB SCH ×2 (07:40→20:54)
[2023-03-06] MEDS: ASPIRIN 81 MG TAB.CHEW PO SCH ×2 (09:18→20:29)
[2023-03-06] MEDS: amLODIPine 5 MG TABLET PO SCH (09:18)
[2023-03-06] MEDS: PROPRANOLOL 10 MG TABLET PO SCH ×2 (09:18→20:30)
[2023-03-06] MEDS: PREGABALIN 100 MG CAPSULE PO SCH ×2 (09:18→20:30)
[2023-03-06] MEDS: DOCUSATE SODIUM 100 MG CAPSULE PO SCH ×2 (09:18→20:29)
[2023-03-06] MEDS: FAMOTIDINE 20 MG TABLET PO SCH ×2 (09:18→20:29)
[2023-03-06] MEDS: VENLAFAXINE 150 MG CAP.XL.24H PO SCH (09:18)
[2023-03-06] MEDS: ENOXAPARIN 40 MG/0.4 ML SYRINGE SQ SCH (09:19)
[2023-03-06] MEDS: NYSTATIN POWDER BOTTLE 15GM TOPICAL SCH ×2 (09:19→20:30)
[2023-03-06] MEDS: CHLORHEXIDINE GLUCONATE 15 ML UDC SWABMOUTH SCH ×2 (09:19→20:28)
[2023-03-06] MEDS: oxyCODONE IR 5 MG TABLET PO PRN (09:26)
[2023-03-06] MEDS: DONEPEZIL 10 MG TABLET PO SCH (10:46)
[2023-03-06] MEDS: LIDOCAINE PATCH TOPICAL SCH (10:47)
[2023-03-06] MEDS: VANCOMYCIN 1,000 MG in 0.9 % SODIUM CHLORIDE 250 ML IV SCH ×2 (10:47→10:58)
[2023-03-06 11:41] LABS: Band Neutrophils % 9 % (0-10); Lymphocytes % 15 % (15-49); Monocytes % (Manual) 6 % (1-12); Platelet Estimate NORMAL (Normal); RBC Morphology NORMAL (Normal); Segmented Neutrophils % 70 % (38-78)
[2023-03-06] MEDS: DOXYCYCLINE HYCLATE 100 MG TABLET.ORL PO SCH ×2 (12:03→20:29)
[2023-03-06] MEDS: SIMVASTATIN 20 MG TABLET PO SCH (20:29)
[2023-03-06] MEDS: DIVALPROEX SODIUM 250 MG TABLET PO SCH (20:30)
[2023-03-07] MEDS: oxyCODONE IR 5 MG TABLET PO PRN (01:23)
[2023-03-07] MEDS: 0.9 % SODIUM CHLORIDE 10 ML SYRINGE IV SCH (04:58)
[2023-03-07] MEDS: BUDESONIDE 0.5 MG/2 ML AMPUL.NEB NEB SCH (07:22)
[2023-03-07] MEDS: IPRATROPIUM/ALBUTEROL 3 ML AMPUL.NEB NEB PRN (07:22)
[2023-03-07] MEDS: LEVOTHYROXINE SODIUM 112 MCG TABLET PO SCH (07:48)
[2023-03-07] MEDS: ASPIRIN 81 MG TAB.CHEW PO SCH (08:49)
[2023-03-07] MEDS: amLODIPine 5 MG TABLET PO SCH (08:49)
[2023-03-07] MEDS: FAMOTIDINE 20 MG TABLET PO SCH (08:49)
[2023-03-07] MEDS: VENLAFAXINE 150 MG CAP.XL.24H PO SCH (08:49)
[2023-03-07] MEDS: PREGABALIN 100 MG CAPSULE PO SCH (08:49)
[2023-03-07] MEDS: DONEPEZIL 10 MG TABLET PO SCH (08:49)
[2023-03-07] MEDS: CHLORHEXIDINE GLUCONATE 15 ML UDC SWABMOUTH SCH (08:50)
[2023-03-07] MEDS: PROPRANOLOL 10 MG TABLET PO SCH (08:50)
[2023-03-07] MEDS: DOCUSATE SODIUM 100 MG CAPSULE PO SCH (08:50)
[2023-03-07] MEDS: ENOXAPARIN 40 MG/0.4 ML SYRINGE SQ SCH (08:50)
[2023-03-07] MEDS: NYSTATIN POWDER BOTTLE 15GM TOPICAL SCH (08:50)
[2023-03-07] MEDS ORDERED: DOXYCYCLINE HYCLATE 100 MG TABLET.ORL PO SCH (09:00)
[2023-03-07] MEDS: DOXYCYCLINE HYCLATE 100 MG TABLET.ORL PO SCH (10:18)
== END 2023-03-07 10:30 | DRG 208 ==
LOC: ED 06:36 → ICU 10:11 → MEDSUR 03-06 16:42
PROVIDERS: ADMIT Internal Medicine; ATTEND Internal Medicine

== ENCOUNTER 2023-04-08 09:28 | Inpatient (IN) ==
[2023-04-08] MEDS ORDERED: IOPAMIDOL 100 ML BOTTLE IV ONE (09:29)
[2023-04-08] MEDS ORDERED: NALOXONE HCL 0.4 MG/ML VIAL IV ONE ×2 (09:44→11:55)
[2023-04-08] MEDS ORDERED: ROCURONIUM 10 MG/ML ML IV ONE ×3 (09:46→13:06)
[2023-04-08] MEDS ORDERED: ETOMIDATE 20 MG/10 ML VIAL IV ONE ×3 (09:46→13:06)
[2023-04-08] MEDS ORDERED: 0.9 % SODIUM CHLORIDE 1,000 ML IV ONE ×2 (09:52→11:40)
[2023-04-08] MEDS ORDERED: PROPOFOL 1,000 MG in PREMIX 1 BAG IV SCH (10:00)
[2023-04-08 10:39] LABS: POC Calcium, Ionized 1.28 (1.16-1.32); POC Creatinine 1.1 (0.6-1.2); POC Potassium 4.2 (3.3-5.1)
[2023-04-08] MEDS ORDERED: PIPERACILLIN SODIUM/TAZOBACTAM 4.5 GM in DEXTROSE 5% IN WATER 50 ML IV ONE (11:10)
[2023-04-08 11:43] LABS: Basophils # (Auto) 0.06 K/mcL (0.00-0.30); Basophils % (Auto) 0.5 % (0.0-2.0); Eosinophils # (Auto) 0.08 K/mcL (0.00-0.70); Eosinophils % (Auto) 0.7 % (0.0-7.0); Hematocrit 39.6 % (34.1-44.9); Hemoglobin 11.5 g/dL (11.2-15.7); Lymphocytes # (Auto) 1.09 K/mcL (1.50-4.80); Lymphocytes % (Auto) 9.6 % (15.5-49.0); Mean Cell Volume 103.7 fL (80.0-100.0); Mean Platelet Volume 11.4 fL (8.8-12.5); Monocytes # (Auto) 0.92 K/mcL (0.10-0.90); Monocytes % (Auto) 8.1 % (1.0-12.0); Neutrophils % (Auto) 80.4 % (38.0-78.0); Platelet Count 197 K/mcL (140-440); RBC 3.82 M/mcL (3.59-5.38); WBC 11.4 K/mcL (4.5-11.0)
[2023-04-08 12:27] LABS: ALT/SGPT 11 U/L (<40); AST/SGOT 18 U/L (<32); Albumin 3.5 gm/dL (3.2-5.2); Alkaline Phosphatase 58 U/L (39-117); Bilirubin,Direct < 0.2 mg/dL (0-0.3); Bilirubin,Total 0.2 mg/dL (0.1-1.0); Globulin 3.4 gm/dL (2.2-3.7); Thyroid Stimulating Hormone 3.55 uIU/mL (0.27-5.01)
[2023-04-08] MEDS ORDERED: 0.9 % SODIUM CHLORIDE 1,000 ML IV SCH (12:45)
[2023-04-08 12:56] LABS: Free T4 (Free Thyroxine) 1.35 ng/dL (0.93-1.70)
[2023-04-08 14:28] LABS: Blood Urea Nitrogen 32 mg/dL (8-23); Calcium 8.8 mg/dL (8.6-10.4); Carbon Dioxide 23 mmol/L (22-30); Chloride 111 mmol/L (96-108); Glomerular Filtration Rate 57; Glucose 93 mg/dL (70-105); Phosphorous 2.5 mg/dL (2.5-4.5)
[2023-04-08 14:34] LABS: Appearance,Urine CLEAR (Clear); Bilirubin,Urine Negative (Negative); Color,Urine YELLOW; Culture Indicated,Urine No; Glucose,Urine (UA) Negative (Negative); Ketones,Urine Negative (Negative); Leukocyte Esterase,Urine Negative /uL (Negative); Nitrate,Urine Negative (Negative); Protein,Urine Negative (Negative); Specific Gravity,Urine 1.015 (1.000-1.035); Urine Blood Negative (Negative); Urobilinogen,Urine Negative
[2023-04-08 14:37] LABS: Amphetamine Screen,Urine None detected; Barbiturate Screen,Urine None detected; Benzodiazepines Screen,Urine None detected; Cannabinoid Screen,Urine None detected; Cocaine Screen,Urine None detected; Opiate Screen,Urine None detected; Oxycodone, Urine Screen None detected; Phencyclidine Screen,Urine None detected
[2023-04-08] MEDS ORDERED: POLYETHYLENE GLYCOL 3350 17 GM PACKET PO PRN (15:10)
[2023-04-08] MEDS ORDERED: POTASSIUM CHLORIDE 40 MEQ in DEXTROSE 5% IN WATER 500 ML IV PRN (15:10)
[2023-04-08] MEDS ORDERED: DEXTROSE 5% IN WATER 500 ML IV ONE (15:10)
[2023-04-08] MEDS ORDERED: IPRATROPIUM/ALBUTEROL 3 ML AMPUL.NEB NEB PRN (15:10)
[2023-04-08] MEDS ORDERED: MAGNESIUM SULFATE 2 GM/50 ML BAG IV PRN (15:10)
[2023-04-08] MEDS ORDERED: NOREPINEPHRINE BITARTRATE 8 MG in 0.9 % SODIUM CHLORIDE 242 ML IV PRN (15:10)
[2023-04-08] MEDS ORDERED: ACETAMINOPHEN 650 MG SUPP.RECT PR PRN (15:10)
[2023-04-08] MEDS ORDERED: POTASSIUM CHLORIDE 20 MEQ TABLET PO PRN ×2 (15:10)
[2023-04-08] MEDS ORDERED: SENNOSIDES 1 TABLET PO PRN (15:10)
[2023-04-08] MEDS ORDERED: METOCLOPRAMIDE 10 MG/2 ML VIAL IV PRN (15:10)
[2023-04-08 15:24] LABS: Band Neutrophils % 1 % (0-10); Lymphocytes % 14 % (15-49); Macrocytosis 2+ (None Seen); Monocytes % (Manual) 7 % (1-12); Platelet Estimate NORMAL (Normal); RBC Morphology ABNORMAL (Normal); Reactive Lymphocytes 2 % (0-2); Segmented Neutrophils % 76 % (38-78)
[2023-04-08] MEDS: ENOXAPARIN 40 MG/0.4 ML SYRINGE SQ SCH (16:29)
[2023-04-08] MEDS: PIPERACILLIN SODIUM/TAZOBACTAM 3.375 GM in DEXTROSE 5% IN WATER 50 ML IV SCH (18:02)
[2023-04-08] MEDS ORDERED: PROPOFOL 100 ML IV ONE (19:06)
[2023-04-08] MEDS: PROPOFOL 1,000 MG in PREMIX 1 BAG IV SCH (19:13)
[2023-04-08] MEDS: IPRATROPIUM/ALBUTEROL 3 ML AMPUL.NEB NEB SCH (19:26)
[2023-04-08] MEDS: DEXTROSE 5%-1/2NS 1,000 ML IV SCH (20:22)
[2023-04-08] MEDS ORDERED: DOCUSATE SODIUM 100 MG CAPSULE PO SCH (21:00)
[2023-04-08] MEDS ORDERED: CHLORHEXIDINE GLUCONATE 15 ML UDC SWABMOUTH SCH (21:00)
[2023-04-08] MEDS: FAMOTIDINE/PF 20 MG/2 ML VIAL IV SCH (21:02)
[2023-04-08] MEDS: CHLORHEXIDINE GLUCONATE 15 ML UDC SWABMOUTH SCH (21:03)
[2023-04-08] MEDS: 0.9 % SODIUM CHLORIDE 10 ML SYRINGE IV SCH (21:03)
[2023-04-08] MEDS: ONDANSETRON 4 MG/2 ML VIAL IV PRN (22:03)
[2023-04-08] MEDS: fentaNYL 100 MCG/2 ML VIAL IV PRN (23:03)
[2023-04-09] MEDS: PIPERACILLIN SODIUM/TAZOBACTAM 3.375 GM in DEXTROSE 5% IN WATER 50 ML IV SCH ×3 (00:03→11:39)
[2023-04-09] MEDS: IPRATROPIUM/ALBUTEROL 3 ML AMPUL.NEB NEB SCH ×4 (01:15→19:22)
[2023-04-09] MEDS: DEXTROSE 5%-1/2NS 1,000 ML IV SCH ×4 (05:29→21:05)
[2023-04-09] MEDS: 0.9 % SODIUM CHLORIDE 10 ML SYRINGE IV SCH ×3 (05:55→20:17)
[2023-04-09] MEDS ORDERED: PROPOFOL 100 ML IV ONE (06:26)
[2023-04-09] MEDS: FAMOTIDINE/PF 20 MG/2 ML VIAL IV SCH ×3 (06:33→20:15)
[2023-04-09] MEDS: fentaNYL 100 MCG/2 ML VIAL IV PRN (06:33)
[2023-04-09] MEDS: ONDANSETRON 4 MG/2 ML VIAL IV PRN (06:33)
[2023-04-09] MEDS: PROPOFOL 1,000 MG in PREMIX 1 BAG IV SCH ×2 (06:35→15:05)
[2023-04-09 07:37] LABS: ALT/SGPT 7 U/L (<40); AST/SGOT 16 U/L (<32); Albumin 2.6 gm/dL (3.2-5.2); Albumin/Globulin Ratio 0.9 (1.0-2.3); Alkaline Phosphatase 39 U/L (39-117); Bilirubin,Direct < 0.2 mg/dL (0-0.3); Bilirubin,Total < 0.2 mg/dL (0.1-1.0); Blood Urea Nitrogen 25 mg/dL (8-23); Calcium 8.9 mg/dL (8.6-10.4); Carbon Dioxide 21 mmol/L (22-30); Chloride 112 mmol/L (96-108); Glomerular Filtration Rate 50; Glucose 97 mg/dL (70-105); Lactate Dehydrogenase 225 U/L (135-225); Phosphorous 3.4 mg/dL (2.5-4.5); Triglycerides 151 mg/dL (<150); Uric Acid 6.7 mg/dL (2.5-8.0)
[2023-04-09 07:42] LABS: Hematocrit 37.3 % (34.1-44.9); Hemoglobin 10.8 g/dL (11.2-15.7); Mean Cell Volume 105.1 fL (80.0-100.0); Mean Platelet Volume 11.9 fL (8.8-12.5); Platelet Count 172 K/mcL (140-440); RBC 3.55 M/mcL (3.59-5.38); Red Cell Distribution Width 15.4 % (11.5-14.5); WBC 9.1 K/mcL (4.5-11.0)
[2023-04-09] MEDS: BACLOFEN 10 MG TABLET PO SCH ×4 (08:25→20:15)
[2023-04-09] MEDS: LEVOTHYROXINE SODIUM 112 MCG TABLET PO SCH (08:28)
[2023-04-09] MEDS: VENLAFAXINE 75 MG TABLET PO SCH ×2 (08:28→20:16)
[2023-04-09 08:54] LABS: Anisocytosis 1+ (None Seen); Band Neutrophils % 4 % (0-10); Eosinophils % (Manual) 1 % (0-7); Lymphocytes % 24 % (15-49); Macrocytosis 1+ (None Seen); Monocytes % (Manual) 5 % (1-12); Platelet Estimate NORMAL (Normal); RBC Morphology ABNORMAL (Normal); Reactive Lymphocytes 3 % (0-2); Segmented Neutrophils % 63 % (38-78)
[2023-04-09] MEDS: ENOXAPARIN 40 MG/0.4 ML SYRINGE SQ SCH (09:15)
[2023-04-09] MEDS: DOCUSATE SODIUM 10 MG/ML ML PT SCH ×3 (09:38→20:13)
[2023-04-09] MEDS: PREGABALIN 150 MG CAPSULE PO SCH ×2 (09:38→20:16)
[2023-04-09] MEDS: VALPROIC ACIDS 250 MG/5 ML ORAL.SOL PT SCH ×2 (10:39→20:14)
[2023-04-09] MEDS: CHLORHEXIDINE GLUCONATE 15 ML UDC SWABMOUTH SCH ×2 (10:40→20:15)
[2023-04-09] MEDS: traMADol 50 MG TABLET PO PRN (19:15)
[2023-04-09] MEDS: SIMVASTATIN 10 MG TABLET PO SCH (20:16)
[2023-04-10] MEDS: IPRATROPIUM/ALBUTEROL 3 ML AMPUL.NEB NEB SCH ×2 (01:00→07:50)
[2023-04-10] MEDS: DEXTROSE 5%-1/2NS 1,000 ML IV SCH (05:14)
[2023-04-10] MEDS: 0.9 % SODIUM CHLORIDE 10 ML SYRINGE IV SCH ×4 (05:15→21:06)
[2023-04-10 06:59] LABS: ALT/SGPT 5 U/L (<40); AST/SGOT 10 U/L (<32); Albumin 2.5 gm/dL (3.2-5.2); Albumin/Globulin Ratio 0.9 (1.0-2.3); Alkaline Phosphatase 37 U/L (39-117); Bilirubin,Direct < 0.2 mg/dL (0-0.3); Bilirubin,Total 0.2 mg/dL (0.1-1.0); Blood Urea Nitrogen 14 mg/dL (8-23); Calcium 8.4 mg/dL (8.6-10.4); Carbon Dioxide 24 mmol/L (22-30); Chloride 112 mmol/L (96-108); Globulin 2.8 gm/dL (2.2-3.7); Glomerular Filtration Rate 64; Glucose 82 mg/dL (70-105); Lactate Dehydrogenase 168 U/L (135-225); Phosphorous 3.2 mg/dL (2.5-4.5); Triglycerides 85 mg/dL (<150); Uric Acid 5.6 mg/dL (2.5-8.0)
[2023-04-10] MEDS: LEVOTHYROXINE SODIUM 112 MCG TABLET PO SCH (07:39)
[2023-04-10] MEDS ORDERED: FUROSEMIDE 40 MG/4 ML VIAL IV ONE (07:55)
[2023-04-10] MEDS ORDERED: VANCOMYCIN PER PHARMACY IV SCH (07:59)
[2023-04-10] MEDS: DOCUSATE SODIUM 10 MG/ML ML PT SCH ×2 (08:11→19:18)
[2023-04-10] MEDS: BACLOFEN 10 MG TABLET PO SCH ×3 (08:19→21:05)
[2023-04-10] MEDS: VENLAFAXINE 75 MG TABLET PO SCH ×2 (08:20→21:04)
[2023-04-10] MEDS: ENOXAPARIN 40 MG/0.4 ML SYRINGE SQ SCH (08:21)
[2023-04-10] MEDS: CHLORHEXIDINE GLUCONATE 15 ML UDC SWABMOUTH SCH ×2 (08:22→19:18)
[2023-04-10] MEDS: VALPROIC ACIDS 250 MG/5 ML ORAL.SOL PT SCH (08:22)
[2023-04-10] MEDS: PREGABALIN 150 MG CAPSULE PO SCH ×2 (08:23→21:04)
[2023-04-10] MEDS: FAMOTIDINE/PF 20 MG/2 ML VIAL IV SCH ×2 (08:32→21:05)
[2023-04-10] MEDS: VANCOMYCIN 1,000 MG in 0.9 % SODIUM CHLORIDE 250 ML IV SCH ×2 (08:33→21:06)
[2023-04-10] MEDS: traMADol 50 MG TABLET PO PRN (19:17)
[2023-04-10] MEDS ORDERED: DIVALPROEX 125 MG CAP.SPRINK PO SCH (21:00)
[2023-04-10] MEDS: SIMVASTATIN 10 MG TABLET PO SCH (21:04)
[2023-04-11] MEDS: 0.9 % SODIUM CHLORIDE 10 ML SYRINGE IV SCH ×3 (04:35→20:23)
[2023-04-11 07:09] LABS: Blood Urea Nitrogen 20 mg/dL (8-23); Calcium 8.5 mg/dL (8.6-10.4); Carbon Dioxide 26 mmol/L (22-30); Chloride 106 mmol/L (96-108); Glomerular Filtration Rate 74; Glucose 72 mg/dL (70-105)
[2023-04-11] MEDS: FAMOTIDINE/PF 20 MG/2 ML VIAL IV SCH ×2 (07:54→20:20)
[2023-04-11] MEDS: LEVOTHYROXINE SODIUM 112 MCG TABLET PO SCH (07:54)
[2023-04-11] MEDS: DOCUSATE SODIUM 10 MG/ML ML PT SCH (07:54)
[2023-04-11] MEDS: BACLOFEN 10 MG TABLET PO SCH ×3 (07:54→20:21)
[2023-04-11] MEDS: VENLAFAXINE 75 MG TABLET PO SCH ×2 (07:54→20:20)
[2023-04-11] MEDS: CHLORHEXIDINE GLUCONATE 15 ML UDC SWABMOUTH SCH ×2 (07:54→20:22)
[2023-04-11] MEDS: ENOXAPARIN 40 MG/0.4 ML SYRINGE SQ SCH (07:54)
[2023-04-11] MEDS: PREGABALIN 150 MG CAPSULE PO SCH ×2 (07:54→20:20)
[2023-04-11] MEDS: AMOXICILLIN/POTASSIUM CLAV 875 MG TABLET PO SCH ×2 (07:59→17:04)
[2023-04-11] MEDS: traMADol 50 MG TABLET PO PRN (20:20)
[2023-04-11] MEDS: SIMVASTATIN 10 MG TABLET PO SCH (20:22)
[2023-04-11] MEDS ORDERED: DIVALPROEX 125 MG CAP.SPRINK PO SCH (21:00)
[2023-04-12] MEDS: 0.9 % SODIUM CHLORIDE 10 ML SYRINGE IV SCH (04:10)
[2023-04-12] MEDS: PREGABALIN 150 MG CAPSULE PO SCH (08:15)
[2023-04-12] MEDS: VENLAFAXINE 75 MG TABLET PO SCH (08:16)
[2023-04-12] MEDS: CHLORHEXIDINE GLUCONATE 15 ML UDC SWABMOUTH SCH (08:16)
[2023-04-12] MEDS: ENOXAPARIN 40 MG/0.4 ML SYRINGE SQ SCH (08:16)
[2023-04-12] MEDS: BACLOFEN 10 MG TABLET PO SCH (08:16)
[2023-04-12] MEDS: LEVOTHYROXINE SODIUM 112 MCG TABLET PO SCH (08:16)
[2023-04-12] MEDS: FAMOTIDINE/PF 20 MG/2 ML VIAL IV SCH (08:16)
[2023-04-12] MEDS: AMOXICILLIN/POTASSIUM CLAV 875 MG TABLET PO SCH (08:16)
[2023-04-12] MEDS: traMADol 50 MG TABLET PO PRN (09:37)
== END 2023-04-12 13:40 | DRG 208 ==
LOC: ED 09:28 → ICU 14:55
PROVIDERS: ADMIT Internal Medicine; ATTEND Internal Medicine

== ENCOUNTER 2023-05-19 11:31 | Inpatient (IN) ==
[2023-05-19 12:10] LABS: POC Calcium, Ionized 1.2 (1.16-1.32); POC Creatinine 1.4 (0.6-1.2); POC Potassium 3.9 (3.3-5.1)
[2023-05-19] MEDS ORDERED: 0.9 % SODIUM CHLORIDE 1,000 ML IV ONE (12:12)
[2023-05-19 13:01] LABS: Basophils # (Auto) 0.02 K/mcL (0.00-0.30); Basophils % (Auto) 0.2 % (0.0-2.0); Eosinophils # (Auto) 0.04 K/mcL (0.00-0.70); Eosinophils % (Auto) 0.4 % (0.0-7.0); Hemoglobin 12.1 g/dL (11.2-15.7); Lymphocytes # (Auto) 1.12 K/mcL (1.50-4.80); Lymphocytes % (Auto) 12.1 % (15.5-49.0); Mean Cell Volume 93.5 fL (80.0-100.0); Mean Platelet Volume 10.8 fL (8.8-12.5); Monocytes # (Auto) 0.87 K/mcL (0.10-0.90); Monocytes % (Auto) 9.4 % (1.0-12.0); Neutrophils % (Auto) 77.4 % (38.0-78.0); Platelet Count 205 K/mcL (140-440); RBC 4.17 M/mcL (3.59-5.38); Red Cell Distribution Width 14.4 % (11.5-14.5); WBC 9.3 K/mcL (4.5-11.0)
[2023-05-19 13:24] LABS: ALT/SGPT 7 U/L (<40); AST/SGOT 12 U/L (<32); Albumin 3.3 gm/dL (3.2-5.2); Alkaline Phosphatase 48 U/L (39-117); Bilirubin,Direct < 0.2 mg/dL (0-0.3); Bilirubin,Total 0.3 mg/dL (0.1-1.0); Globulin 3.5 gm/dL (2.2-3.7)
[2023-05-19 13:26] LABS: Appearance,Urine HAZY (Clear); Bacteria,Urine FEW /hpf (0); Bilirubin,Urine Negative (Negative); Color,Urine YELLOW; Culture Indicated,Urine No; Glucose,Urine (UA) Negative (Negative); Ketones,Urine 5 mg/dL (Negative); Leukocyte Esterase,Urine Negative /uL (Negative); Nitrate,Urine Negative (Negative); Protein,Urine Negative (Negative); Specific Gravity,Urine 1.013 (1.000-1.035); Urine Blood 0.03 mg/dL (Negative); Urine RBC 2 /hpf (0-3); Urine Squamous Epithelial Cell 16 /hpf (0-4); Urine WBC 1 /hpf (0-4); Urobilinogen,Urine Negative
[2023-05-19 14:37] LABS: Thyroid Stimulating Hormone 2.12 uIU/mL (0.27-5.01)
[2023-05-19 16:44] LABS: Amphetamine Screen,Urine None detected; Barbiturate Screen,Urine None detected; Benzodiazepines Screen,Urine None detected; Cannabinoid Screen,Urine None detected; Cocaine Screen,Urine None detected; Opiate Screen,Urine None detected; Oxycodone, Urine Screen None detected; Phencyclidine Screen,Urine None detected
[2023-05-19] MEDS ORDERED: MAGNESIUM SULFATE 2 GM/50 ML BAG IV PRN (19:09)
[2023-05-19] MEDS ORDERED: 0.9 % SODIUM CHLORIDE 1,000 ML IV SCH (19:09)
[2023-05-19] MEDS ORDERED: ONDANSETRON 4 MG/2 ML VIAL IV PRN (19:09)
[2023-05-19] MEDS ORDERED: POTASSIUM CHLORIDE 20 MEQ TABLET PO PRN ×2 (19:09)
[2023-05-19] MEDS ORDERED: IPRATROPIUM/ALBUTEROL 3 ML AMPUL.NEB NEB PRN (19:09)
[2023-05-19] MEDS ORDERED: POTASSIUM CHLORIDE 40 MEQ in DEXTROSE 5% IN WATER 500 ML IV PRN (19:09)
[2023-05-19] MEDS ORDERED: POLYETHYLENE GLYCOL 3350 17 GM PACKET PO PRN (19:09)
[2023-05-19] MEDS ORDERED: SENNOSIDES 1 TABLET PO PRN (19:09)
[2023-05-19] MEDS: DOCUSATE SODIUM 100 MG CAPSULE PO SCH (20:11)
[2023-05-19] MEDS: BACLOFEN 10 MG TABLET PO SCH ×2 (20:11→20:12)
[2023-05-19] MEDS: PREGABALIN 150 MG CAPSULE PO SCH (20:11)
[2023-05-19] MEDS: VENLAFAXINE 150 MG CAP.XL.24H PO SCH (20:11)
[2023-05-19] MEDS: DIVALPROEX SODIUM ER 250 MG TABLET PO SCH (20:12)
[2023-05-20 06:44] LABS: Basophils # (Auto) 0.04 K/mcL (0.00-0.30); Basophils % (Auto) 0.4 % (0.0-2.0); Hematocrit 36.7 % (34.1-44.9); Lymphocytes # (Auto) 1.84 K/mcL (1.50-4.80); Lymphocytes % (Auto) 17.9 % (15.5-49.0); Mean Cell Volume 99.5 fL (80.0-100.0); Mean Platelet Volume 10.9 fL (8.8-12.5); Monocytes # (Auto) 1.08 K/mcL (0.10-0.90); Monocytes % (Auto) 10.5 % (1.0-12.0); Neutrophils % (Auto) 69.7 % (38.0-78.0); Platelet Count 171 K/mcL (140-440); RBC 3.69 M/mcL (3.59-5.38); Red Cell Distribution Width 14.6 % (11.5-14.5); WBC 10.3 K/mcL (4.5-11.0)
[2023-05-20 07:12] LABS: ALT/SGPT 7 U/L (<40); AST/SGOT 11 U/L (<32); Albumin 2.7 gm/dL (3.2-5.2); Albumin/Globulin Ratio 0.8 (1.0-2.3); Alkaline Phosphatase 41 U/L (39-117); Bilirubin,Direct < 0.2 mg/dL (0-0.3); Bilirubin,Total 0.3 mg/dL (0.1-1.0); Blood Urea Nitrogen 23 mg/dL (8-23); Calcium 8.9 mg/dL (8.6-10.4); Carbon Dioxide 18 mmol/L (22-30); Chloride 106 mmol/L (96-108); Globulin 3.4 gm/dL (2.2-3.7); Glomerular Filtration Rate 41; Glucose 51 mg/dL (70-105); Lactate Dehydrogenase 186 U/L (135-225); Phosphorous 3.7 mg/dL (2.5-4.5); Triglycerides 146 mg/dL (<150); Uric Acid 7.4 mg/dL (2.5-8.0)
[2023-05-20] MEDS: BACLOFEN 10 MG TABLET PO SCH ×3 (08:20→21:58)
[2023-05-20] MEDS: PREGABALIN 150 MG CAPSULE PO SCH ×2 (08:21→21:07)
[2023-05-20] MEDS: PROPRANOLOL 10 MG TABLET PO SCH ×2 (08:21→22:00)
[2023-05-20] MEDS: VENLAFAXINE 150 MG CAP.XL.24H PO SCH (08:21)
[2023-05-20] MEDS: LEVOTHYROXINE SODIUM 112 MCG TABLET PO SCH (08:21)
[2023-05-20] MEDS: DOCUSATE SODIUM 100 MG CAPSULE PO SCH ×2 (08:22→22:01)
[2023-05-20] MEDS: ENOXAPARIN 40 MG/0.4 ML SYRINGE SQ SCH (08:22)
[2023-05-20] MEDS ORDERED: VENLAFAXINE 75 MG TABLET PO SCH (09:00)
[2023-05-20] MEDS: traMADol 50 MG TABLET PO PRN ×2 (09:09→22:09)
[2023-05-20] MEDS: DONEPEZIL 10 MG TABLET PO SCH (09:09)
[2023-05-20] MEDS ORDERED: METHOCARBAMOL 750 MG TABLET PO PRN (09:23)
[2023-05-20] MEDS ORDERED: diphenhydrAMINE 25 MG CAPSULE PO PRN (09:23)
[2023-05-20] MEDS: ACETAMINOPHEN 325 MG TABLET PO PRN ×2 (12:46→22:08)
[2023-05-20] MEDS: NICOTINE 21 MG PATCH TOPICAL SCH (17:15)
[2023-05-20] MEDS: MELATONIN 3 MG TABLET PO SCH (21:57)
[2023-05-20] MEDS: SIMVASTATIN 10 MG TABLET PO SCH (21:59)
[2023-05-20] MEDS: DIVALPROEX SODIUM ER 250 MG TABLET PO SCH (22:00)
[2023-05-21] MEDS: PROPRANOLOL 10 MG TABLET PO SCH ×2 (07:07→20:08)
[2023-05-21] MEDS: BACLOFEN 10 MG TABLET PO SCH ×2 (07:07→15:29)
[2023-05-21] MEDS: DONEPEZIL 10 MG TABLET PO SCH (07:07)
[2023-05-21] MEDS: LEVOTHYROXINE SODIUM 112 MCG TABLET PO SCH (07:07)
[2023-05-21] MEDS: PREGABALIN 150 MG CAPSULE PO SCH ×2 (07:07→20:09)
[2023-05-21] MEDS: DOCUSATE SODIUM 100 MG CAPSULE PO SCH ×2 (08:12→20:11)
[2023-05-21 08:41] LABS: ALT/SGPT 5 U/L (<40); AST/SGOT 9 U/L (<32); Albumin 2.6 gm/dL (3.2-5.2); Albumin/Globulin Ratio 0.9 (1.0-2.3); Alkaline Phosphatase 53 U/L (39-117); Bilirubin,Direct < 0.2 mg/dL (0-0.3); Bilirubin,Total 0.2 mg/dL (0.1-1.0); Blood Urea Nitrogen 34 mg/dL (8-23); Calcium 8.6 mg/dL (8.6-10.4); Carbon Dioxide 18 mmol/L (22-30); Chloride 101 mmol/L (96-108); Glomerular Filtration Rate 41; Glucose 106 mg/dL (70-105); Lactate Dehydrogenase 185 U/L (135-225); Phosphorous 4.6 mg/dL (2.5-4.5); Triglycerides 76 mg/dL (<150); Uric Acid 7.1 mg/dL (2.5-8.0)
[2023-05-21] MEDS: ENOXAPARIN 40 MG/0.4 ML SYRINGE SQ SCH (09:16)
[2023-05-21] MEDS: NICOTINE 21 MG PATCH TOPICAL SCH (09:16)
[2023-05-21] MEDS: VENLAFAXINE 75 MG TABLET PO SCH ×2 (09:16→20:08)
[2023-05-21] MEDS: SODIUM BICARBONATE 650 MG TABLET PO SCH ×3 (10:31→20:09)
[2023-05-21] MEDS: ACETAMINOPHEN 325 MG TABLET PO PRN ×2 (11:34→18:26)
[2023-05-21] MEDS: traMADol 50 MG TABLET PO PRN (11:35)
[2023-05-21] MEDS: MELATONIN 3 MG TABLET PO SCH (20:01)
[2023-05-21] MEDS: SIMVASTATIN 10 MG TABLET PO SCH (20:08)
[2023-05-21] MEDS: DIVALPROEX SODIUM ER 250 MG TABLET PO SCH (20:10)
[2023-05-22] MEDS: BACLOFEN 10 MG TABLET PO SCH ×4 (01:49→20:28)
[2023-05-22] MEDS: LEVOTHYROXINE SODIUM 112 MCG TABLET PO SCH (07:08)
[2023-05-22] MEDS: PROPRANOLOL 10 MG TABLET PO SCH ×2 (07:08→20:29)
[2023-05-22] MEDS: DONEPEZIL 10 MG TABLET PO SCH (07:08)
[2023-05-22] MEDS: PREGABALIN 150 MG CAPSULE PO SCH ×2 (07:08→20:28)
[2023-05-22] MEDS: ENOXAPARIN 40 MG/0.4 ML SYRINGE SQ SCH (07:08)
[2023-05-22] MEDS: VENLAFAXINE 75 MG TABLET PO SCH ×2 (07:08→20:30)
[2023-05-22] MEDS: DOCUSATE SODIUM 100 MG CAPSULE PO SCH ×2 (07:09→20:23)
[2023-05-22] MEDS: traMADol 50 MG TABLET PO PRN ×2 (07:42→19:38)
[2023-05-22] MEDS: ACETAMINOPHEN 325 MG TABLET PO PRN ×2 (07:43→19:40)
[2023-05-22 08:59] LABS: ALT/SGPT 6 U/L (<40); AST/SGOT 10 U/L (<32); Albumin 3.1 gm/dL (3.2-5.2); Albumin/Globulin Ratio 0.9 (1.0-2.3); Alkaline Phosphatase 53 U/L (39-117); Bilirubin,Direct < 0.2 mg/dL (0-0.3); Bilirubin,Total 0.2 mg/dL (0.1-1.0); Blood Urea Nitrogen 35 mg/dL (8-23); Calcium 9.3 mg/dL (8.6-10.4); Carbon Dioxide 24 mmol/L (22-30); Chloride 99 mmol/L (96-108); Globulin 3.6 gm/dL (2.2-3.7); Glomerular Filtration Rate 32; Glucose 84 mg/dL (70-105); Lactate Dehydrogenase 186 U/L (135-225); Phosphorous 4.3 mg/dL (2.5-4.5); Triglycerides 107 mg/dL (<150); Uric Acid 7.5 mg/dL (2.5-8.0)
[2023-05-22] MEDS: NICOTINE 21 MG PATCH TOPICAL SCH (09:18)
[2023-05-22] MEDS: MELATONIN 3 MG TABLET PO SCH (18:35)
[2023-05-22] MEDS: DIVALPROEX SODIUM ER 250 MG TABLET PO SCH (20:28)
[2023-05-22] MEDS: SIMVASTATIN 10 MG TABLET PO SCH (20:30)
[2023-05-23] MEDS: VENLAFAXINE 75 MG TABLET PO SCH (07:25)
[2023-05-23] MEDS: DONEPEZIL 10 MG TABLET PO SCH (07:25)
[2023-05-23] MEDS: BACLOFEN 10 MG TABLET PO SCH (07:25)
[2023-05-23] MEDS: PREGABALIN 150 MG CAPSULE PO SCH (07:25)
[2023-05-23] MEDS: ENOXAPARIN 40 MG/0.4 ML SYRINGE SQ SCH (07:25)
[2023-05-23] MEDS: LEVOTHYROXINE SODIUM 112 MCG TABLET PO SCH (07:26)
[2023-05-23] MEDS: PROPRANOLOL 10 MG TABLET PO SCH (07:26)
[2023-05-23 07:32] LABS: Anion Gap 12.3 (8.0-16.0); Blood Urea Nitrogen 44 mg/dL (8-23); Calcium 9.1 mg/dL (8.6-10.4); Carbon Dioxide 22 mmol/L (22-30); Chloride 103 mmol/L (96-108); Glomerular Filtration Rate 35; Glucose 81 mg/dL (70-105)
[2023-05-23] MEDS: DOCUSATE SODIUM 100 MG CAPSULE PO SCH (07:32)
[2023-05-23] MEDS: NICOTINE 21 MG PATCH TOPICAL SCH (11:17)
[2023-05-23] MEDS: ACETAMINOPHEN 325 MG TABLET PO PRN (11:40)
[2023-05-23] MEDS: traMADol 50 MG TABLET PO PRN (11:40)
== END 2023-05-23 12:49 | DRG 92 ==
LOC: ED 11:31 → ICU 19:08
PROVIDERS: ADMIT Internal Medicine; ATTEND Internal Medicine

== ENCOUNTER 2023-11-15 15:52 | Inpatient (IN) ==
[2023-11-15] MEDS ORDERED: IOPAMIDOL 100 ML BOTTLE IV ONE (15:53)
[2023-11-15] MEDS: 0.9 % SODIUM CHLORIDE 1,000 ML IV ONE ×2 (16:17→17:26)
[2023-11-15 16:28] LABS: POC Calcium, Ionized 1.36 (1.16-1.32); POC Creatinine 1.4 (0.6-1.2); POC Potassium 3.9 (3.3-5.1)
[2023-11-15] MEDS: NALOXONE HCL 0.4 MG/ML VIAL IV ONE ×2 (16:36→17:24)
[2023-11-15 17:00] LABS: Alcohol, Blood < 10.1 mg/dL; Alcohol,Blood < 0.010 gm/dL (<0.010)
[2023-11-15 17:08] LABS: Thyroid Stimulating Hormone 1.81 uIU/mL (0.27-5.01)
[2023-11-15 17:12] LABS: ALT/SGPT 6 U/L (<40); AST/SGOT 22 U/L (<32); Albumin/Globulin Ratio 0.9 (1.0-2.3); Alkaline Phosphatase 53 U/L (39-117); Bilirubin,Total < 0.2 mg/dL (0.1-1.0); Blood Urea Nitrogen 43 mg/dL (8-23); Calcium 9.9 mg/dL (8.6-10.4); Carbon Dioxide 19 mmol/L (22-30); Chloride 111 mmol/L (96-108); Globulin 3.2 gm/dL (2.2-3.7); Glomerular Filtration Rate 41; Glucose 91 mg/dL (70-105)
[2023-11-15 17:50] LABS: Free T4 (Free Thyroxine) 1.47 ng/dL (0.93-1.70)
[2023-11-15 18:51] LABS: Basophils # (Auto) 0.02 K/mcL (0.00-0.30); Basophils % (Auto) 0.1 % (0.0-2.0); Eosinophils # (Auto) 0.08 K/mcL (0.00-0.70); Eosinophils % (Auto) 0.2 % (0.0-7.0); Hematocrit 28.4 % (34.1-44.9); Hemoglobin 8.6 g/dL (11.2-15.7); Lymphocytes # (Auto) 1.88 K/mcL (1.50-4.80); Lymphocytes % (Auto) 5.7 % (15.5-49.0); Mean Cell Volume 96.9 fL (80.0-100.0); Mean Corpuscular HGB Conc 30.3 g/dL (31.0-36.0); Mean Platelet Volume 10.4 fL (8.8-12.5); Monocytes # (Auto) 2.98 K/mcL (0.10-0.90); Neutrophils % (Auto) 82.1 % (38.0-78.0); Platelet Count 236 K/mcL (140-440); RBC 2.93 M/mcL (3.59-5.38); Red Cell Distribution Width 15.4 % (11.5-14.5)
[2023-11-15] MEDS: cefTRIAXone 2 GM in DEXTROSE 5% IN WATER 50 ML IV ONE (18:56)
[2023-11-15 19:04] LABS: Appearance,Urine CLOUDY (Clear); Bacteria,Urine FEW /hpf (0); Bilirubin,Urine Negative (Negative); Color,Urine YELLOW; Culture Indicated,Urine Yes; Glucose,Urine (UA) Negative (Negative); Ketones,Urine Negative (Negative); Leukocyte Esterase,Urine 250 /uL (Negative); Mucus,Urine FEW /hpf; Nitrate,Urine POS (Negative); Protein,Urine 30 mg/dL (Negative); Specific Gravity,Urine 1.018 (1.000-1.035); Urine RBC 15 /hpf (0-3); Urine Squamous Epithelial Cell 6 /hpf (0-4); Urine WBC 164 /hpf (0-4); Urobilinogen,Urine Negative
[2023-11-15] MEDS: CEFEPIME 2 GM VIAL IV ONE (19:06)
[2023-11-15] MEDS: 0.9 % SODIUM CHLORIDE 1,000 ML IV SCH (19:06)
[2023-11-15 19:07] LABS: Amphetamine Screen,Urine None detected; Barbiturate Screen,Urine None detected; Benzodiazepines Screen,Urine None detected; Cannabinoid Screen,Urine None detected; Cocaine Screen,Urine None detected; Opiate Screen,Urine None detected; Oxycodone, Urine Screen None detected; Phencyclidine Screen,Urine None detected
[2023-11-15] MEDS: ONDANSETRON 4 MG/2 ML VIAL IV PRN (20:14)
[2023-11-15] MEDS: LACTATED RINGERS 1,000 ML IV SCH (21:42)
[2023-11-15] MEDS: cefTRIAXone 2 GM in DEXTROSE 5% IN WATER 50 ML IV SCH (21:42)
[2023-11-15] MEDS: cefTRIAXone 2 GM VIAL ONE (21:44)
[2023-11-15] MEDS: FAMOTIDINE/PF 20 MG/2 ML VIAL IV SCH (21:46)
[2023-11-15] MEDS: 0.9 % SODIUM CHLORIDE 10 ML SYRINGE IV SCH (21:46)
[2023-11-16] MEDS: PROMETHAZINE 25 MG/ML VIAL IV PRN (00:30)
[2023-11-16 06:10] LABS: Basophils # (Auto) 0.02 K/mcL (0.00-0.30); Eosinophils # (Auto) 0.05 K/mcL (0.00-0.70); Lymphocytes # (Auto) 1.49 K/mcL (1.50-4.80); Monocytes # (Auto) 2.03 K/mcL (0.10-0.90)
[2023-11-16 06:26] LABS: ALT/SGPT < 5 U/L (<40); AST/SGOT 14 U/L (<32); Albumin 2.9 gm/dL (3.2-5.2); Albumin/Globulin Ratio 0.9 (1.0-2.3); Alkaline Phosphatase 48 U/L (39-117); Bilirubin,Direct < 0.2 mg/dL (0-0.3); Bilirubin,Total < 0.2 mg/dL (0.1-1.0); Blood Urea Nitrogen 35 mg/dL (8-23); Calcium 9.6 mg/dL (8.6-10.4); Carbon Dioxide 20 mmol/L (22-30); Chloride 116 mmol/L (96-108); Globulin 3.1 gm/dL (2.2-3.7); Glomerular Filtration Rate 50; Glucose 89 mg/dL (70-105); Lactate Dehydrogenase 135 U/L (135-225); Phosphorous 4.3 mg/dL (2.5-4.5); Triglycerides 154 mg/dL (<150); Uric Acid 6.9 mg/dL (2.5-8.0)
[2023-11-16 07:44] LABS: Basophils % (Auto) 0.1 % (0.0-2.0); Eosinophils % (Auto) 0.2 % (0.0-7.0); Hematocrit 39.2 % (34.1-44.9); Hemoglobin 11.9 g/dL (11.2-15.7); Lymphocytes % (Auto) 5.8 % (15.5-49.0); Mean Cell Volume 94.7 fL (80.0-100.0); Mean Corpuscular HGB Conc 30.4 g/dL (31.0-36.0); Mean Platelet Volume 10.4 fL (8.8-12.5); Neutrophils % (Auto) 82.3 % (38.0-78.0); Platelet Count 208 K/mcL (140-440); RBC 4.14 M/mcL (3.59-5.38); Red Cell Distribution Width 15.5 % (11.5-14.5); WBC 25.5 K/mcL (4.5-11.0)
[2023-11-16] MEDS ORDERED: NALOXONE 2 MG/2 ML SYRINGE IV ONE (12:15)
[2023-11-16] MEDS: traMADol 50 MG TABLET PO PRN (23:32)
[2023-11-16] MEDS: traMADol 50 MG TABLET PO ONE (23:33)
[2023-11-17] MEDS: HYDROmorphone 1 MG/ML SYRINGE IV PRN (05:17)
[2023-11-17 06:13] LABS: Basophils # (Auto) 0.04 K/mcL (0.00-0.30); Basophils % (Auto) 0.2 % (0.0-2.0); Eosinophils # (Auto) 0.13 K/mcL (0.00-0.70); Eosinophils % (Auto) 0.7 % (0.0-7.0); Hematocrit 33.2 % (34.1-44.9); Hemoglobin 10.2 g/dL (11.2-15.7); Lymphocytes # (Auto) 1.98 K/mcL (1.50-4.80); Lymphocytes % (Auto) 10.4 % (15.5-49.0); Mean Cell Volume 95.1 fL (80.0-100.0); Mean Corpuscular HGB Conc 30.7 g/dL (31.0-36.0); Mean Platelet Volume 10.4 fL (8.8-12.5); Monocytes # (Auto) 1.42 K/mcL (0.10-0.90); Monocytes % (Auto) 7.5 % (1.0-12.0); Neutrophils % (Auto) 77.4 % (38.0-78.0); Platelet Count 220 K/mcL (140-440); RBC 3.49 M/mcL (3.59-5.38); Red Cell Distribution Width 15.7 % (11.5-14.5)
[2023-11-17] MEDS ORDERED: ALBUTEROL SULFATE 60 PUFF INHALER INH PRN (08:49)
[2023-11-17] MEDS: DONEPEZIL 10 MG TABLET PO SCH (09:26)
[2023-11-17] MEDS: VENLAFAXINE 150 MG CAP.XL.24H PO SCH (09:26)
[2023-11-17] MEDS: LEVOTHYROXINE SODIUM 112 MCG TABLET PO SCH (09:26)
[2023-11-17] MEDS: PREGABALIN 100 MG CAPSULE PO SCH (09:26)
[2023-11-17] MEDS: BACLOFEN 10 MG TABLET PO SCH (09:26)
[2023-11-17] MEDS: PROPRANOLOL 10 MG TABLET PO SCH (09:26)
[2023-11-17] MEDS: NAPROXEN 250 MG TABLET PO PRN (19:13)
[2023-11-17] MEDS: SIMVASTATIN 10 MG TABLET PO SCH (20:59)
[2023-11-17] MEDS: DIVALPROEX SODIUM 250 MG TABLET PO SCH (20:59)
[2023-11-17] MEDS: FAMOTIDINE 20 MG TABLET PO SCH (21:02)
[2023-11-18 06:24] LABS: Basophils # (Auto) 0.03 K/mcL (0.00-0.30); Basophils % (Auto) 0.2 % (0.0-2.0); Eosinophils % (Auto) 2.5 % (0.0-7.0); Hematocrit 33.6 % (34.1-44.9); Hemoglobin 10.3 g/dL (11.2-15.7); Lymphocytes # (Auto) 2.53 K/mcL (1.50-4.80); Lymphocytes % (Auto) 20.9 % (15.5-49.0); Mean Cell Volume 95.5 fL (80.0-100.0); Mean Corpuscular HGB Conc 30.7 g/dL (31.0-36.0); Mean Platelet Volume 9.8 fL (8.8-12.5); Monocytes # (Auto) 1.11 K/mcL (0.10-0.90); Monocytes % (Auto) 9.2 % (1.0-12.0); Neutrophils % (Auto) 59.9 % (38.0-78.0); Platelet Count 213 K/mcL (140-440); RBC 3.52 M/mcL (3.59-5.38); Red Cell Distribution Width 15.6 % (11.5-14.5); WBC 12.1 K/mcL (4.5-11.0)
[2023-11-18 06:50] LABS: ALT/SGPT < 5 U/L (<40); AST/SGOT 14 U/L (<32); Albumin 2.3 gm/dL (3.2-5.2); Albumin/Globulin Ratio 0.9 (1.0-2.3); Alkaline Phosphatase 38 U/L (39-117); Bilirubin,Total < 0.2 mg/dL (0.1-1.0); Blood Urea Nitrogen 21 mg/dL (8-23); Calcium 8.9 mg/dL (8.6-10.4); Carbon Dioxide 23 mmol/L (22-30); Chloride 108 mmol/L (96-108); Globulin 2.6 gm/dL (2.2-3.7); Glomerular Filtration Rate 64; Glucose 89 mg/dL (70-105)
[2023-11-19 07:06] LABS: Basophils # (Auto) 0.03 K/mcL (0.00-0.30); Basophils % (Auto) 0.3 % (0.0-2.0); Eosinophils # (Auto) 0.29 K/mcL (0.00-0.70); Eosinophils % (Auto) 2.6 % (0.0-7.0); Hematocrit 34.1 % (34.1-44.9); Hemoglobin 10.8 g/dL (11.2-15.7); Lymphocytes % (Auto) 22.1 % (15.5-49.0); Mean Cell Volume 93.4 fL (80.0-100.0); Mean Corpuscular HGB Conc 31.7 g/dL (31.0-36.0); Mean Platelet Volume 10.4 fL (8.8-12.5); Monocytes # (Auto) 1.03 K/mcL (0.10-0.90); Monocytes % (Auto) 9.1 % (1.0-12.0); Neutrophils % (Auto) 58.3 % (38.0-78.0); Platelet Count 241 K/mcL (140-440); RBC 3.65 M/mcL (3.59-5.38); Red Cell Distribution Width 15.2 % (11.5-14.5); WBC 11.3 K/mcL (4.5-11.0)
[2023-11-19 07:23] LABS: ALT/SGPT < 5 U/L (<40); AST/SGOT 14 U/L (<32); Albumin 2.5 gm/dL (3.2-5.2); Albumin/Globulin Ratio 0.9 (1.0-2.3); Alkaline Phosphatase 38 U/L (39-117); Bilirubin,Total < 0.2 mg/dL (0.1-1.0); Blood Urea Nitrogen 25 mg/dL (8-23); Calcium 8.9 mg/dL (8.6-10.4); Carbon Dioxide 23 mmol/L (22-30); Chloride 106 mmol/L (96-108); Globulin 2.9 gm/dL (2.2-3.7); Glomerular Filtration Rate 64; Glucose 82 mg/dL (70-105)
[2023-11-20 06:35] LABS: Basophils # (Auto) 0.06 K/mcL (0.00-0.30); Basophils % (Auto) 0.5 % (0.0-2.0); Eosinophils # (Auto) 0.39 K/mcL (0.00-0.70); Eosinophils % (Auto) 3.4 % (0.0-7.0); Hematocrit 31.7 % (34.1-44.9); Hemoglobin 9.6 g/dL (11.2-15.7); Lymphocytes # (Auto) 2.95 K/mcL (1.50-4.80); Lymphocytes % (Auto) 25.8 % (15.5-49.0); Mean Cell Volume 94.6 fL (80.0-100.0); Mean Corpuscular HGB Conc 30.3 g/dL (31.0-36.0); Mean Platelet Volume 9.9 fL (8.8-12.5); Monocytes # (Auto) 0.89 K/mcL (0.10-0.90); Monocytes % (Auto) 7.8 % (1.0-12.0); Neutrophils % (Auto) 54.1 % (38.0-78.0); Platelet Count 225 K/mcL (140-440); RBC 3.35 M/mcL (3.59-5.38); Red Cell Distribution Width 14.8 % (11.5-14.5); WBC 11.5 K/mcL (4.5-11.0)
[2023-11-20 06:51] LABS: ALT/SGPT < 5 U/L (<40); AST/SGOT 14 U/L (<32); Albumin 2.4 gm/dL (3.2-5.2); Alkaline Phosphatase 41 U/L (39-117); Bilirubin,Total < 0.2 mg/dL (0.1-1.0); Blood Urea Nitrogen 24 mg/dL (8-23); Carbon Dioxide 25 mmol/L (22-30); Chloride 107 mmol/L (96-108); Globulin 2.4 gm/dL (2.2-3.7); Glomerular Filtration Rate 64; Glucose 81 mg/dL (70-105)
== END 2023-11-20 13:50 | disposition home or self-care (01) | DRG 689 ==
LOC: ED 15:52 → ICU 19:49
PROVIDERS: ADMIT Internal Medicine; ATTEND Internal Medicine